=== PATIENT | female | born 1950 | race Caucasian/White ===

== ENCOUNTER → 2016-11-22 | Outpatient (CLI) | payer MEDICARE ==
[~2016-11-22] VITALS: Ht 167.6 cm; Wt 93.4 kg
[~2016-11-22] MED LIST: ALEN70SO PO; ARAV1TAB PO; ASPI81TA85 PO; ATOR1TAB19 PO; ATOR40TA75 PO; CARV6.25 PO; D3 M1CAP2 PO; DILA100C PO; DOCU10ELUD PO; ELIQ5TAB PO; FERR325T3 PO; IBUP200T2 PO; IRBE75TA5 PO; IRON50TA PO; IRON65TA PO; JANU100T PO; KETO10TAB PO; LEFL1TAB4 PO; LEFL20TA PO; LIDOCAINE 2% INJ 100 MG/5 ML SDV (FOR ANES.) As Ordered ONE; LISI5TAB PO; MOBI15TA PO; MULTTAB4 PO; NS 1,000 ML IV ONE; OMEP20CA3 PO; OREN250I IV; PRED1TABL PO; PRED50TA2 PO; PRED5PAK PO; PROPOFOL 200 MG/20 ML VIAL As Ordered ONE; REST0.05 OU; ROPI0.25 PO; ROPINIROLE PO; SENO8.6T9 PO; TYLE325T5 PO; VITA100037 PO; VITA100072 PO; VITA250L PO; VITA500C24 PO; [UNRECOGNIZED DRUG - CODE] PO; [UNRECOGNIZED DRUG - OTHER] PO
--- NOTE | 2016-11-22 09:03 | ROOR ---
Patient Name: Carrol Nuñez Procedure Date: 11/22/2016 8:46 AM Date of : 1950 Age: 65 Room: [facility] Gender: Female Note Status: Finalized Procedure: Upper GI endoscopy + Small bowel bx. Indications: Iron deficiency anemia Providers: Eduardo Lutz MD Referring MD: ALAN DAVIS MD Requesting Provider: Medicines: Monitored Anesthesia Care Complications: No immediate complications. Procedure: Pre-Anesthesia Assessment: - The heart rate, respiratory rate, oxygen saturations, blood pressure, adequacy of pulmonary ventilation, and response to care were monitored throughout the procedure. The Endoscope was introduced through the mouth, and advanced to the second part of duodenum. The upper GI endoscopy was accomplished without difficulty. The patient tolerated the procedure well. Findings: The Z-line was regular and was found 40 cm from the incisors. The exam of the esophagus was otherwise normal. No other significant abnormalities were identified in a careful examination of the stomach. The exam of the duodenum was otherwise normal. Biopsies for histology were taken with a cold forceps in the first portion of the duodenum for evaluation of celiac disease. The exam was otherwise without abnormality. Impression: - Z-line regular, 40 cm from the incisors. - The examination was otherwise normal. - Biopsies were taken with a cold forceps for evaluation of celiac disease. - The examination was otherwise normal. Recommendation: - Patient has a contact number available for emergencies. The signs and symptoms of potential delayed complications were discussed with the patient. Return to normal activities tomorrow. Written discharge instructions were provided to the patient. - High fiber diet. - Discharge patient to home. - Continue present medications. - Await pathology results. - Telephone GI clinic for pathology results in 1 week. - Return to referring physician. - Check Portal Online for Path Results.([email or web address] - The findings and recommendations were discussed with the patient's family. Eduardo Lutz MD Eduardo Lutz MD 11/22/2016 9:02:39 AM This report has been signed electronically. Number of Addenda: 0 Note Initiated On: 11/22/2016 8:46 AM Estimated Blood Loss: Estimated blood loss: none.
--- NOTE | 2016-11-22 09:19 | ROOR ---
Patient Name: Carrol Nuñez Procedure Date: 11/22/2016 8:46 AM Date of : 1950 Age: 65 Room: [facility] Gender: Female Note Status: Finalized Procedure: Total Colonoscopy to Cecum Indications: Colon cancer screening in patient at increased risk: Colorectal cancer in father Providers: Eduardo Lutz MD Referring MD: ALAN DAVIS MD Requesting Provider: Medicines: Monitored Anesthesia Care Complications: No immediate complications. Procedure: Pre-Anesthesia Assessment: - The heart rate, respiratory rate, oxygen saturations, blood pressure, adequacy of pulmonary ventilation, and response to care were monitored throughout the procedure. The Colonoscope was introduced through the anus and advanced to the cecum, identified by appendiceal orifice and ileocecal valve. The colonoscopy was performed without difficulty. The patient tolerated the procedure well. The quality of the bowel preparation was good. Findings: The perianal and digital rectal examinations were normal. No other significant abnormalities were identified in a careful examination of the remainder of the colon. The exam was otherwise without abnormality on direct and retroflexion views. Impression: - The examination was otherwise normal on direct and retroflexion views. - No specimens collected. - The exam was otherwise normal to the cecum. Recommendation: - Patient has a contact number available for emergencies. The signs and symptoms of potential delayed complications were discussed with the patient. Return to normal activities tomorrow. Written discharge instructions were provided to the patient. - High fiber diet. - Discharge patient to home. - Continue present medications. - Repeat colonoscopy in 5 years for screening purposes. - Return to referring physician. - The findings and recommendations were discussed with the patient's family. Eduardo Lutz MD Eduardo Lutz MD 11/22/2016 9:18:41 AM This report has been signed electronically. Number of Addenda: 0 Note Initiated On: 11/22/2016 8:46 AM Estimated Blood Loss: Estimated blood loss: none.
[2016-11-22 09:45] VITALS: BP 135/83
== END ==
LOC: M OPP 07:35
PROVIDERS: ATTEND Internal Medicine Gastroenterology
DX: Z12.11 Encounter for screening for malignant neoplasm of colon (principal); Z80.0 Family history of malignant neoplasm of digestive organs; D50.9 Iron deficiency anemia, unspecified; G40.909 Epilepsy, unspecified, not intractable, without status epilepticus; M06.9 Rheumatoid arthritis, unspecified; M19.90 Unspecified osteoarthritis, unspecified site; I10 Essential (primary) hypertension; G62.9 Polyneuropathy, unspecified; E78.00 Pure hypercholesterolemia, unspecified; E11.9 Type 2 diabetes mellitus without complications; I48.91 Unspecified atrial fibrillation; G56.00 Carpal tunnel syndrome, unspecified upper limb; H26.9 Unspecified cataract; Z98.61 Coronary angioplasty status; Z79.02 Long term (current) use of antithrombotics/antiplatelets; Z79.899 Other long term (current) drug therapy; Z88.8 Allergy status to other drugs, medicaments and biological substances
CPT/HCPCS: 43239; 88305; G0105

== ENCOUNTER → 2017-09-07 | Outpatient (CLI) | payer MEDICARE ==
[2017-09-07 15:14] LABS: INR 1.82; PROTHROMBIN TIME 21.6 SECONDS (12.4-14.5)
== END ==
LOC: M LAB 14:23
DX: Z79.01 Long term (current) use of anticoagulants (principal)
CPT/HCPCS: 85610

== ENCOUNTER → 2018-02-12 | Outpatient (CLI) | payer MEDICARE ==
[2018-02-12 13:20] LABS: INR 1.02; PROTHROMBIN TIME 13.5 SECONDS (12.1-14.4)
== END ==
LOC: M LAB 12:24
DX: I48.0 Paroxysmal atrial fibrillation (principal)
CPT/HCPCS: 85610

== ENCOUNTER → 2018-03-04 | Outpatient (CLI) | payer MEDICARE ==
[2018-03-04 15:32] LABS: INR 2.55
== END ==
LOC: M LAB 15:09
DX: I48.0 Paroxysmal atrial fibrillation (principal)
CPT/HCPCS: 85610

== ENCOUNTER 2018-03-05 05:32 | Emergency (ER) | payer MEDICARE ==
[2018-03-05 06:10] LABS: BASO % 0.5 % (0.0-1.0); EOS # 0.2 10^3/uL (0.0-0.50); EOS % 2.1 % (0.0-3.0); HEMATOCRIT 37.5 % (36.0-47.0); HEMOGLOBIN 12.2 g/dl (12.0-15.5); IMMATURE GRANULOCYTE % 0.3 % (0-3.0); LYMPH # 2.6 10^3/uL (1.5-4.5); MEAN CORPUSCULAR HEMOGLOBIN 30.1 pg (27.0-33.0); MEAN CORPUSCULAR HGB CONC 32.5 g/dl (32.0-36.5); MEAN CORPUSCULAR VOLUME 92.6 fl (80.0-96.0); MONO # 0.6 10^3/uL (0.0-0.8); MONO % 8.2 % (0.0-5.0); NEUTROPHILS # 4.3 10^3/uL (1.8-7.7); NEUTROPHILS % 54.9 % (36.0-66.0); PLATELET COUNT, AUTOMATED 208 10^3/uL (150-450); RED BLOOD COUNT 4.05 10^6/uL (4.00-5.40); WHITE BLOOD COUNT 7.7 10^3/uL (4.0-10.0)
[2018-03-05 07:09] LABS: INR 2.42; PROTHROMBIN TIME 26.8 SECONDS (12.1-14.4)
[2018-03-05 07:10] LABS: PARTIAL THROMBOPLASTIN TIME 38.4 SECONDS (25.4-37.6)
[2018-03-05] MEDS: KETOROLAC 30 MG/ML VIAL (J1885) IV (07:30)
[2018-03-05 07:57] LABS: ANION GAP 7 MEQ/L (8-16); BLOOD UREA NITROGEN 11 MG/DL (7-18); CALCIUM LEVEL 7.8 MG/DL (8.8-10.2); CARBON DIOXIDE LEVEL 28 MEQ/L (21-32); CHLORIDE LEVEL 108 MEQ/L (98-107); CK-MB VALUE MASS < 1.0 NG/ML (<3.6); CPK CREATINE PHOSPHOKINASE 44 U/L (26-192); CREATININE FOR GFR 0.68 MG/DL (0.55-1.30); GLOMERULAR FILTRATION RATE > 60.0 (>45); GLUCOSE, FASTING 108 MG/DL (70-100); MB/CK RELATIVE INDEX 2.27 (< OR =4); POTASSIUM SERUM 4.9 MEQ/L (3.5-5.1); SODIUM LEVEL 143 MEQ/L (136-145); TROPONIN I < 0.02 NG/ML (< 0.10)
[2018-03-05] MEDS ORDERED: ISOVUE-370 76% 100ML VIAL (Q9967) As Ordered (08:18)
== END 2018-03-05 09:58 | disposition home or self-care (01) ==
LOC: M ED 05:32
DX: R07.89 Other chest pain (principal); I48.91 Unspecified atrial fibrillation; I10 Essential (primary) hypertension; E78.5 Hyperlipidemia, unspecified; E11.9 Type 2 diabetes mellitus without complications; M06.9 Rheumatoid arthritis, unspecified; Z88.8 Allergy status to other drugs, medicaments and biological substances; Z79.899 Other long term (current) drug therapy; Z79.01 Long term (current) use of anticoagulants; Z79.52 Long term (current) use of systemic steroids; Z79.84 Long term (current) use of oral hypoglycemic drugs
CPT/HCPCS: Q9967

== ENCOUNTER → 2018-03-25 | Outpatient (CLI) | payer MEDICARE ==
[2018-03-25 14:34] LABS: INR 2.73; PROTHROMBIN TIME 29.5 SECONDS (12.1-14.4)
== END ==
LOC: M LAB 13:15
DX: I48.0 Paroxysmal atrial fibrillation (principal); Z51.81 Encounter for therapeutic drug level monitoring; Z79.01 Long term (current) use of anticoagulants
CPT/HCPCS: 85610

== ENCOUNTER 2018-04-06 14:39 | Emergency (ER) | payer MEDICARE ==
[2018-04-06] MEDS: NORCO, ANEXSIA 5/325MG TABLET (HYDROcodone/ACETAMINOPHEN) PO (15:15)
== END 2018-04-06 16:26 | disposition home or self-care (01) ==
LOC: M ED 14:39
DX: S83.92XA Sprain of unspecified site of left knee, initial encounter (principal); X50.9XXA Other and unspecified overexertion or strenuous movements or postures, initial encounter; Y92.89 Other specified places as the place of occurrence of the external cause; M25.462 Effusion, left knee; I10 Essential (primary) hypertension; E78.00 Pure hypercholesterolemia, unspecified; G47.30 Sleep apnea, unspecified; M06.9 Rheumatoid arthritis, unspecified; Z88.8 Allergy status to other drugs, medicaments and biological substances; Z79.01 Long term (current) use of anticoagulants; Z79.899 Other long term (current) drug therapy; Z79.82 Long term (current) use of aspirin
CPT/HCPCS: 73564

== ENCOUNTER → 2018-05-07 | Outpatient (CLI) | payer MEDICARE ==
[~2018-05-07] MED LIST changes: +ASPI1TAB PO; +HYDR-3713 PO; +HYDR200T3 PO; +IRBE150T12 PO; -LIDOCAINE 2% INJ 100 MG/5 ML SDV (FOR ANES.) As Ordered ONE; +METF750T PO; +NORCOTAB PO; -NS 1,000 ML IV ONE; -PROPOFOL 200 MG/20 ML VIAL As Ordered ONE; -ROPI0.25 PO; +ROPI0.253 PO; +WARF4TAB51 PO
[2018-05-07 15:00] LABS: INR 1.62; PROTHROMBIN TIME 19.5 SECONDS (12.1-14.4)
== END ==
LOC: M LAB 14:20
PROVIDERS: ATTEND Physician Assistant
DX: I48.0 Paroxysmal atrial fibrillation (principal); Z79.01 Long term (current) use of anticoagulants

== ENCOUNTER → 2018-05-31 | Outpatient (CLI) | payer MEDICARE ==
[2018-05-31 11:39] LABS: INR 1.78
== END ==
LOC: M LAB 10:35
PROVIDERS: ATTEND Physician Assistant
DX: I48.0 Paroxysmal atrial fibrillation (principal)

== ENCOUNTER → 2018-06-28 | Outpatient (CLI) | payer MEDICARE ==
[2018-06-28 09:24] LABS: INR 0.92; PROTHROMBIN TIME 12.4 SECONDS (12.1-14.4)
== END ==
LOC: M LAB 06-26 10:30
PROVIDERS: ATTEND Internal Medicine Cardiovascular Disease
DX: I48.0 Paroxysmal atrial fibrillation (principal)

== ENCOUNTER → 2018-07-29 | Outpatient (CLI) | payer MEDICARE ==
[2018-07-29 16:06] LABS: INR 3.8; PROTHROMBIN TIME 38.3 SECONDS (12.1-14.4)
== END ==
LOC: M LAB 15:17
PROVIDERS: ATTEND Physician Assistant
DX: I48.0 Paroxysmal atrial fibrillation (principal)

== ENCOUNTER → 2018-09-11 | Outpatient (CLI) | payer MEDICARE ==
[~2018-09-11] MED LIST changes: -ASPI1TAB PO; +ASPI81TA26 PO; -DOCU10ELUD PO; +DOCU5LIQ PO; +HYDR-3715 PO; -NORCOTAB PO
[2018-09-11 14:25] LABS: INR 1.41; PROTHROMBIN TIME 17.5 SECONDS (12.1-14.4)
== END ==
LOC: M LAB 13:41
PROVIDERS: ATTEND Physician Assistant
DX: I48.0 Paroxysmal atrial fibrillation (principal)

== ENCOUNTER → 2018-09-27 | Outpatient (CLI) | payer MEDICARE ==
[2018-09-27 15:57] LABS: INR 3.57; PROTHROMBIN TIME 36.5 SECONDS (12.1-14.4)
== END ==
LOC: M LAB 15:05
PROVIDERS: ATTEND Physician Assistant
DX: I48.0 Paroxysmal atrial fibrillation (principal)

== ENCOUNTER → 2018-11-05 | Outpatient (CLI) | payer MEDICARE ==
[2018-11-05 19:44] LABS: INR 3.84; PROTHROMBIN TIME 38.7 SECONDS (12.1-14.4)
== END ==
LOC: M LAB 18:41
PROVIDERS: ATTEND Physician Assistant
DX: I48.0 Paroxysmal atrial fibrillation (principal)

== ENCOUNTER → 2018-12-12 | Outpatient (CLI) | payer MEDICARE ==
[~2018-12-12] MED LIST changes: +OMEP20CA4 PO
[2018-12-12 10:54] LABS: PROTHROMBIN TIME 69.3 SECONDS (11.8-14.0)
[2018-12-12 15:11] LABS: INR 8.18
== END ==
LOC: M LAB 09:49
PROVIDERS: ATTEND Physician Assistant
DX: I48.0 Paroxysmal atrial fibrillation (principal)

== ENCOUNTER → 2018-12-16 | Outpatient (CLI) | payer MEDICARE ==
[2018-12-16 15:07] LABS: INR 1.41; PROTHROMBIN TIME 16.9 SECONDS (11.8-14.0)
== END ==
LOC: M LAB 14:27
PROVIDERS: ATTEND Physician Assistant
DX: I48.0 Paroxysmal atrial fibrillation (principal)

== ENCOUNTER → 2018-12-25 | Outpatient (CLI) | payer MEDICARE ==
[2018-12-25 17:14] LABS: PROTHROMBIN TIME 48.9 SECONDS (11.8-14.0)
[2018-12-25 17:28] LABS: INR 5.29
== END ==
LOC: M LAB 15:41
PROVIDERS: ATTEND Physician Assistant
DX: I48.0 Paroxysmal atrial fibrillation (principal)

== ENCOUNTER → 2019-01-15 | Outpatient (CLI) | payer MEDICARE ==
[~2019-01-15] MED LIST changes: +ALEN70TA74 PO; +METF-954 PO; +SALA1TAB PO; +TRUL0.5I SC; +WARF-58 PO
[2019-01-15 14:45] LABS: INR 3.2; PROTHROMBIN TIME 32.7 SECONDS (11.8-14.0)
== END ==
LOC: M LAB 13:32
PROVIDERS: ATTEND Internal Medicine Cardiovascular Disease
DX: Z79.01 Long term (current) use of anticoagulants (principal)

== ENCOUNTER 2019-01-16 17:21 | Inpatient (IN) | payer MEDICARE ==
[~2019-01-16] VITALS: Ht 167.6 cm; Wt 73.5 kg
[~2019-01-16 17:21] MED LIST changes: -ALEN70TA74 PO; -METF-954 PO; -SALA1TAB PO; -TRUL0.5I SC; -WARF-58 PO
[2019-01-16 18:40] LABS: BASO % 0.8 % (0.0-1.0); EOS # 0.2 10^3/uL (0.0-0.50); HEMATOCRIT 30.8 % (36.0-47.0); HEMOGLOBIN 10.3 g/dl (12.0-15.5); LYMPH # 2.2 10^3/uL (1.5-4.5); LYMPH % 41.1 % (24.0-44.0); MEAN CORPUSCULAR HEMOGLOBIN 29.9 pg (27.0-33.0); MEAN CORPUSCULAR HGB CONC 33.4 g/dl (32.0-36.5); MEAN CORPUSCULAR VOLUME 89.5 fl (80.0-96.0); MONO # 0.7 10^3/uL (0.0-0.8); MONO % 13.5 % (0.0-5.0); NEUTROPHILS # 2.1 10^3/uL (1.8-7.7); NEUTROPHILS % 40.4 % (36.0-66.0); PLATELET COUNT, AUTOMATED 163 10^3/uL (150-450); RED BLOOD COUNT 3.44 10^6/uL (4.00-5.40); WHITE BLOOD COUNT 5.3 10^3/uL (4.0-10.0)
[2019-01-16 18:44] LABS: INR 3.81; PROTHROMBIN TIME 37.6 SECONDS (11.8-14.0)
[2019-01-16 18:45] LABS: ALBUMIN 3.2 GM/DL (3.2-5.2); ALT/SGPT 17 U/L (12-78); BILIRUBIN,TOTAL 0.2 MG/DL (0.2-1.0); BLOOD UREA NITROGEN 16 MG/DL (7-18); CALCIUM LEVEL 7.7 MG/DL (8.8-10.2); CARBON DIOXIDE LEVEL 31 MEQ/L (21-32); CHLORIDE LEVEL 103 MEQ/L (98-107); CREATININE FOR GFR 0.87 MG/DL (0.55-1.30); GLOMERULAR FILTRATION RATE > 60.0 (>39); GLUCOSE, FASTING 118 MG/DL (70-100); PARTIAL THROMBOPLASTIN TIME 46.1 SECONDS (25.0-38.4); POTASSIUM SERUM 3.3 MEQ/L (3.5-5.1); SODIUM LEVEL 141 MEQ/L (136-145); TOTAL PROTEIN 6.6 GM/DL (6.4-8.2)
[2019-01-16] MEDS ORDERED: METF-954 PO (20:35)
[2019-01-16] MEDS ORDERED: WARF-58 PO (20:35)
[2019-01-16] MEDS ORDERED: SALA1TAB PO (20:35)
[2019-01-16] MEDS ORDERED: TRUL0.5I SC (20:35)
[2019-01-16] MEDS ORDERED: ALEN70TA74 PO (20:35)
[2019-01-16] MEDS ORDERED: HumaLOG INSULIN (NovoLOG) PER UNIT SC SCH (21:00)
[2019-01-16] MEDS: NS 1,000 ML IV SCH (21:16)
[2019-01-16] MEDS ORDERED: GLUCOSE 4 GM CHEW TABLET PO PRN (21:30)
[2019-01-16] MEDS ORDERED: GLUCAGON FOR INJ 1 MG VIAL (J1610) SC PRN (21:30)
[2019-01-16] MEDS ORDERED: DEXTROSE 50% 50 ML SYRINGE IV PRN (21:30)
--- NOTE | 2019-01-16 21:32 | ECGEPIP ---
[facility] - ED Test Date: 2019-01-16 Pat Name: ULI TONG Department: Room: - Gender: Female Receiving Operator: : 1950 Requested By: DAMARIS Elam Order Number: [id number] Reading MD: Urvashi De Leon Measurements Intervals Dawson Rate: 88 P: 70 [place]: 186 QRS: 1 QRSD: 86 T: 4 QT: 392 QTc: 475 Interpretive Statements SINUS RHYTHM WITH OCCASIONAL SUPRAVENTRICULAR PREMATURE COMPLEXES NONSPECIFIC ST & T-WAVE ABNORMALITY INCREASED RATE/ECTOPY 03/05/18 Electronically Signed on 01-16-2019 21:31:55 EDT by Urvashi De Leon
--- NOTE | 2019-01-16 21:43 | HPEPDOC ---
[facility] Medical History & Physical Date of Admission Jan 16, 2019 Date of Service: Jan 16, 2019 Other Provider PCP: Alexandr Pearce Attending Physician: LYUDMILA PERKINS MD History and Physical PRIMARY CARE PROVIDER: Dr. Alexandr Pearce ATTENDING: Dr. Lyudmila Perkins CHIEF COMPLAINT: Blood in stool HISTORY OF PRESENT ILLNESS: Patient is a 68 year old female who was sent to the emergency department by Dr. Bhatt's office for supratherapeutic INR with concurrent GI bleed. Patient states that for the past 5-7 days she has felt weak, tired and has noticed dark loose stool as well as bright red blood in her stool. She states this has never happened before. She did not come in sooner because she "did not want to be a bother". She has had a supratherapeutic INR up to 8 in the outpatient setting for the past month but never with any GI bleeding, she states she thinks this happens because she does not follow the dietary recommendations that come with taking warfarin too well. She otherwise has no complaints currently. Stool occult done in ED was positive for bright red blood per rectum. PAST MEDICAL HISTORY: Paroxysmal atrial fibrillation Type 2 diabetes Rheumatoid arthritis Hypertension GERD Restless leg syndrome PAST SURGICAL HISTORY: Loop recorder insertion by Dr. Avila 2 C-sections (1973, 1974) Appendectomy (1974) Cholecystectomy () SOCIAL HISTORY: Denies alcohol use, denies use of tobacco products, denies any marijuana, heroin, cocaine, or PCP use. 1 cat at home. Lives by herself. FAMILY HISTORY: Father and brother with colorectal cancer history ALLERGIES: Please see below. REVIEW OF SYSTEMS: GENERAL: Denies fevers, chills, night sweats, hemoptysis. Admits to 60 lbs unintentional weight loss in last year. HEENT: Denies headache, dizziness, vision changes, hearing loss, sore throat. Admits to lightheadedness CARDIOVASCULAR: Denies chest pain, palpitations, orthopnea RESPIRATORY: Denies shortness of breath, wheezing, cough GASTROINTESTINAL: denies nausea, vomiting, abdominal pain, constipation, admits to diarrhea, bloody stool GENITOURINARY: Denies dysuria,urinary urgency, hematuria. MUSCULOSKELETAL: Denies muscle/joint pain, stiffness, admits to weakness NEUROLOGICAL: Denies any numbness/tingling, focal weakness, or syncope HOME MEDICATIONS: Please see below. PHYSICAL EXAMINATION: Vitals: (see below) General: No acute distress, laying comfortably in bed. HEENT: Normocephalic, atraumatic. EOMI. No scleral icterus. dry mucous membranes . No pharyngeal erythema or uvular deviation. Neck: No JVD, lymphadenopathy, or thyromegaly. Cardiac: RRR, Normal S1 and S2, No murmurs, gallops, rubs. Pulm: Clear to auscultation b/l. No wheezing, crackles or rhonchi Abd: Bowel Sounds present. Abdomen is soft, non-tender, non-distended. No guarding, rebound tenderness, or rigidity. No hepatosplenomegaly. No masses or eccymosis. Ext: No edema or cyanosis Neuro: Strength +5/5 BUE and BLE. CN 3-12 grossly intact. Sensation intact LABORATORY DATA: See below. IMAGING: None MICROBIOLOGY: Please see below. ASSESSMENT/PLAN: #. GI bleed Suspect lower GI bleed but given history of darkened stools, it could potentially be upper GI as well. Patient is currently stable as they're hemoglobin is not especially low. Transfuse if hemoglobin is less than 8. Will trend H&H's every 6 hours. Consulted general surgery (Dr. Mercer), who recommended getting a CT abdomen pelvis with IV contrast given her history of recent unexpected weight changeover operator the past year. He will see patient in AM and will likely proceed with endoscopy. Getting GI prophylaxis, running IV fluids at 100 mL per hour, patient on clear liquid diet in anticipation for endoscopy. #. Supratherapeutic INR of 3.8 - Holding Warfarin x2 days and will reduce dosage by 25% - Not giving Vitamin K, as patient will still need to be anticoagulated for her paroxysmal afib #. Paroxysmal atrial fibrillation - holding anticoagulation - Continue home carvedilol #. Type 2 diabetes -Sliding-scale insulin - Continue atorvastatin #. Hypertension - Patients blood pressure controlled currently, irbesartan listed as home med, but not reviewed by pharmacy. Can keep in mind if elevated in the future. #. Restless leg syndrome -Continue ropinirole #. Rheumatoid arthritis -Continue leflunomide, plaquenil home med, was scheduled for orencia infusion tomorrow, but can follow up and reschedule outpatient #.Epilepsy -Continue phenytoin -DVT prophy: Teds and sequentials, holding warfarin for GI bleed Vital Signs Vital Signs Date Time Temp Pulse Resp B/P (MAP) Pulse Ox O2 Delivery O2 Flow Rate FiO2 01/16/19 20:24 75 119/70 (86) 97 01/16/19 17:22 98.2 16 Room Air Laboratory Data Labs 24H Laboratory Tests 2 01/16/19 17:58: Immature Granulocyte % (Auto) 0.2, White Blood Count 5.3, Red Blood Count 3.44L, Hemoglobin 10.3L, Hematocrit 30.8L, Mean Corpuscular Volume 89.5, Mean Corpuscular Hemoglobin 29.9, Mean Corpuscular Hemoglobin Concent 33.4, Red Cell Distribution Width 13.5, Platelet Count 163, Neutrophils (%) (Auto) 40.4, Lymphocytes (%) (Auto) 41.1, Monocytes (%) (Auto) 13.5H, Eosinophils (%) (Auto) 4.0H, Basophils (%) (Auto) 0.8, Neutrophils # (Auto) 2.1, Lymphocytes # (Auto) 2 .2, Monocytes # (Auto) 0.7, Eosinophils # (Auto) 0.2, Basophils # (Auto) 0.0, Nucleated Red Blood Cells % (auto) 0.0, Prothrombin Time 37.6H, Prothromb Time International Ratio 3.81, Activated Partial Thromboplast Time 46.1H, Anion Gap 7L, Glomerular Filtration Rate > 60.0, Blood Urea Nitrogen 16, Creatinine 0.87, Sodium Level 141, Potassium Level 3.3L, Chloride Level 103, Carbon Dioxide Level 31, Calcium Level 7.7L, Aspartate Amino Transf (AST/SGOT) 23, Alanine Aminotransferase (ALT/SGPT) 17, Alkaline Phosphatase 90, Total Bilirubin 0.2, Total Protein 6.6, Albumin 3.2, Albumin/Globulin Ratio 0.94L CBC/BMP Laboratory Tests 01/16/19 17:58 Red Blood Count 3.44 L, Mean Corpuscular Volume 89.5, Mean Corpuscular Hemoglobin 29.9, Mean Corpuscular Hemoglobin Concent 33.4, Red Cell Distribution Width 13.5, Neutrophils (%) (Auto) 40.4, Lymphocytes (%) (Auto) 41.1, Monocytes (%) (Auto) 13.5 H, Eosinophils (%) (Auto) 4.0 H, Basophils (%) (Auto) 0.8, Neutrophils # (Auto) 2.1, Lymphocytes # (Auto) 2.2, Monocytes # (Auto) 0.7, Eosinophils # (Auto) 0.2, Basophils # (Auto) 0.0, Calcium Level 7.7 L, Aspartate Amino Transf (AST/SGOT) 23, Alanine Aminotransferase (ALT/SGPT) 17, Alkaline Phosphatase 90, Total Bilirubin 0.2, Total Protein 6.6, Albumin 3.2 Home Medications Scheduled Abatacept Injection (Orencia 250 mg Vial) 250 Mg Inj, 250 MG IV QMONTH DUE 01/17/19 Alendronate Sodium (Alendronate Sodium) 70 Mg Tablet, 70 MG PO QWEEK SATURDAYS Atorvastatin Calcium (Atorvastatin Calcium) 40 Mg Tab, 40 MG PO DAILY Carvedilol (Carvedilol) 6.25 Mg Tab, 6.25 MG PO BID Cholecalciferol (Vitamin D3) (Vitamin D3) 5,000 Unit Cap, 5,000 UNIT PO DAILY Cyanocobalamin (Vitamin B-12) (B-12 Dual Spectrum) 5,000 Mcg Tab, 5,000 MCG PO DAILY Dulaglutide (Trulicity) 1.5 Mg/0.5 Ml Pen.injctr, 1.5 MG SC QWEEK SATURDAYS Hydroxychloroquine Sulfate (Hydroxychloroquine Sulfate) 200 Mg Tab, 200 MG PO BID Irbesartan (Irbesartan) 75 Mg Tab, 75 MG PO QHS Leflunomide (Leflunomide) 20 Mg Tab, 20 MG PO DAILY Metformin HCl (Metformin HCl) 850 Mg Tablet, 850 MG PO BID Omeprazole (Omeprazole) 20 Mg Cap, 20 MG PO DAILY Phenytoin Sodium Extended (Dilantin) 100 Mg Cap, 200 MG PO TID Pilocarpine HCl (Salagen) 5 Mg Tablet, 5 MG PO TID Prednisone (Prednisone) 5 Mg Sergey, 5 MG PO Q2D PT RAN OUT OF MED A COUPLE DAYS AGO Ropinirole HCl (Ropinirole HCl) 0.25 Mg Tab, 0.25 MG PO BID Allergies Coded Allergies: infliximab (Verified Allergy, Unknown, not sure what reaction is, 01/16/19) lisinopril (Verified Adverse Reaction, Mild, cough, 01/16/19) A-FIB/CHADSVASC A-FIB History Current/History of A-Fib/PAF?: Yes Current PO Anticoag Therapy: Yes Age/Risk Factor Scoring CHADSVASC: CHADSVASC Response (Comments) Value Age Risk Factor Age 65-74 years old 1 Gender Risk Factor Female 1 Hx of HTN Yes 1 Hx of Diabetes Yes 1 Total 4 Treatment Treatment ordered: Holding Warfarin Reason Anticoagulant not given: Current bleeding GME ATTESTATION GME ATTESTATION My faculty preceptor for this patient encounter was physically present during the encounter and was fully available. All aspects of the patient interview, examination, medical decision making process, and medical care plan development were reviewed and approved by the faculty preceptor. The faculty preceptor is aware and concurs with the plan as stated in the body of this note and will attest to such by his/her cosignature. ATTENDING NOTE I personally performed a history and physical examination of the patient and discussed the management with the resident. I reviewed the resident's note and agree with the documented findings and plan of care. LENIN IGNACIO DO Jan 16, 2019 21:43 LYUDMILA PERKINS MD Jan 19, 2019 19:27
[2019-01-16] MEDS ORDERED: ISOVUE-370 76% 100ML VIAL (Q9967) As Ordered ONE (22:29)
[2019-01-17 00:36] VITALS: BP 139/96
--- NOTE | 2019-01-17 00:43 | REPVR ---
EXAM: CT Abdomen and Pelvis With Contrast EXAM DATE/TIME: 01/16/2019 9:50 PM CLINICAL HISTORY: 68 years old, female; Other: Wt loss gi bleed; Additional info: 60 lbs weight loss in last year, gi bleed TECHNIQUE: Imaging protocol: Computed tomography of the abdomen and pelvis with intravenous contrast. Radiation optimization: All CT scans at this facility use at least one of these dose optimization techniques: automated exposure control; mA and/or kV adjustment per patient size (includes targeted exams where dose is matched to clinical indication); or iterative reconstruction. Contrast material: ISO; Contrast volume: 100 ml; Contrast route: AC; COMPARISON: CR Pelvis, complete 05/31/2013 10:51 AM FINDINGS: Lungs: Mild bibasilar atelectasis. Heart: Cardiomegaly. Liver: Liver is enlarged with mild diffuse fatty infiltration. Gallbladder and bile ducts: Status post cholecystectomy. No ductal dilatation. Pancreas: Moderate atrophy of the pancreas. Spleen: Normal. No splenomegaly. Adrenals: Normal. No mass. Kidneys and ureters: Lobulated appearance of the bilateral kidneys. No stones or hydroureteronephrosis. Stomach and bowel: Normal. No obstruction. No mucosal thickening. Appendix: No evidence of appendicitis. Intraperitoneal space: Normal. No free air. No significant fluid collection. Vasculature: Normal. No abdominal aortic aneurysm. Lymph nodes: Normal. No enlarged lymph nodes. Bladder: Unremarkable as visualized. Reproductive: Unremarkable as visualized. Bones/joints: Diffuse demineralization of the bones with degenerative changes. Soft tissues: Unremarkable. IMPRESSION: No acute finding. Enlarged liver with diffuse fatty infiltration. No masses. Electronically signed by: Noemi Su On 01/17/2019 00:43:41 AM
[2019-01-17 00:51] LABS: HEMATOCRIT 29.2 % (36.0-47.0); HEMOGLOBIN 9.9 g/dl (12.0-15.5)
[2019-01-17] MEDS: HYDROXYCHLOROQUINE 200 MG TAB PO SCH ×2 (00:51→09:14)
[2019-01-17] MEDS: CARVedilol 6.25 MG TAB PO SCH ×2 (00:51→09:14)
[2019-01-17] MEDS: PHENYTOIN ER 100 MG CAP PO SCH ×3 (00:52→16:31)
[2019-01-17] MEDS: rOPINIRole 0.25 MG TAB(REQUIP) PO SCH ×2 (00:52→09:15)
[2019-01-17] MEDS: PANTOPRAZOLE 40MG INJ (PROTONIX) (C9113) IV SCH ×2 (00:53→09:14)
[2019-01-17 06:02] VITALS: BP 119/78
[2019-01-17 06:05] LABS: BASO % 0.9 % (0.0-1.0); EOS # 0.2 10^3/uL (0.0-0.50); EOS % 3.9 % (0.0-3.0); HEMATOCRIT 28.7 % (36.0-47.0); HEMOGLOBIN 9.8 g/dl (12.0-15.5); LYMPH # 1.9 10^3/uL (1.5-4.5); LYMPH % 40.9 % (24.0-44.0); MEAN CORPUSCULAR HEMOGLOBIN 30.4 pg (27.0-33.0); MEAN CORPUSCULAR HGB CONC 34.1 g/dl (32.0-36.5); MEAN CORPUSCULAR VOLUME 89.1 fl (80.0-96.0); MONO # 0.6 10^3/uL (0.0-0.8); MONO % 12.1 % (0.0-5.0); NEUTROPHILS # 1.9 10^3/uL (1.8-7.7); PLATELET COUNT, AUTOMATED 122 10^3/uL (150-450); RED BLOOD COUNT 3.22 10^6/uL (4.00-5.40); WHITE BLOOD COUNT 4.6 10^3/uL (4.0-10.0)
[2019-01-17 06:15] LABS: INR 3.85; PROTHROMBIN TIME 37.9 SECONDS (11.8-14.0)
[2019-01-17 06:31] LABS: BLOOD UREA NITROGEN 11 MG/DL (7-18); CALCIUM LEVEL 7.6 MG/DL (8.8-10.2); CARBON DIOXIDE LEVEL 31 MEQ/L (21-32); CHLORIDE LEVEL 106 MEQ/L (98-107); CREATININE FOR GFR 0.64 MG/DL (0.55-1.30); GLOMERULAR FILTRATION RATE > 60.0 (>39); GLUCOSE, FASTING 97 MG/DL (70-100); POTASSIUM SERUM 3.2 MEQ/L (3.5-5.1); SODIUM LEVEL 143 MEQ/L (136-145)
[2019-01-17] MEDS: HumaLOG INSULIN (NovoLOG) PER UNIT SC SCH ×3 (07:30→16:31)
[2019-01-17] MEDS ORDERED: LEFLUNOMIDE 20 MG PO SCH (09:00)
[2019-01-17] MEDS ORDERED: PILOCARPINE 5 MG PO SCH (09:00)
[2019-01-17] MEDS ORDERED: ATORVASTATIN 20 MG TAB PO SCH (09:00)
[2019-01-17 09:14] VITALS: BP 119/78
[2019-01-17] MEDS: NS 1,000 ML IV SCH (11:43)
[2019-01-17 12:15] LABS: HEMATOCRIT 29.4 % (36.0-47.0); HEMOGLOBIN 10.1 g/dl (12.0-15.5)
[2019-01-17] MEDS ORDERED: LOPERAMIDE 2 MG CAP PO PRN (13:00)
--- NOTE | 2019-01-17 13:31 | CR ---
DATE OF CONSULTATION: 01/17/2019 The patient is a 68-year-old female who presents with about 7-10 days of more severe diarrhea with some gastrointestinal (GI) bleeding. She notices that since her diabetic issues have been problematic she has had more diarrhea issues. She noticed some dark stool, but mostly it is bright red blood per rectum. The darker stool is maroon, it is not melanotic. The patient has had a supratherapeutic INR in the past, but no bleeding associated with that. She had a colonoscopy 2 years ago that revealed no evidence of significant abnormality by Dr. Lutz and essentially had a workup because of family history of colon cancer which revealed essentially normal colon throughout. She underwent abdomen and pelvis CAT scan last night after I had spoken to the hospitalist for a 60 pound weight loss in the last year and essentially the CAT scan reveals no significant findings with an enlarged liver, but otherwise normal appearing. No evidence of colitis. No evidence of masses or adenopathy. Her hematocrit has been stable overnight and her INR this morning is still supratherapeutic at 3.85. It has not been reversed. She noticed in her diarrhea that she had a couple dots of red blood, but otherwise no significant bleeding. She has been on a clear liquid diet today and has tolerated this prior to me seeing her. Her past medical history is significant for history of paroxysmal atrial fibrillation, type 2 diabetes mellitus, rheumatoid arthritis, hypertension, gastroesophageal reflux disease, restless leg syndrome, loop recorder insertion, , appendectomy, cholecystectomy. Medications include Arensia, alendronate, atorvastatin, carvidelol, vitamin D3, B12, Trulicity, iron, hydroxychloroquine, irbesartan, luflunamide, metformin, omeprazole, Dilantin, Salagen, prednisone, ropinorole, and Coumadin. Physical exam reveals a pleasant 68-year-old who looks her stated age. HEENT is unremarkable. Lungs are clear anteriorly. Heart is irregular with multiple irregular beats. Abdomen: Soft, nontender, nondistended. IMPRESSION AND PLAN: The patient had GI bleed of undetermined etiology. However, with this long ongoing diarrhea issue, I do feel that she is going to need a colonoscopy and I would recommend an upper endoscopy as well. She does have a family that she wants to go to tomorrow. I do feel that is a reasonable option for her given that she is not having any ongoing bleeding despite having a supratherapeutic INR still at this point. I do feel that it is reasonable to have her progress her diet first and see how she does with that, but if she tolerates that then I would keep her off the Coumadin. I would be glad to see her in the office this week and then set up her upper and lower endoscopy as soon as possible. Otherwise, we can attempt to contact Dr. Lutz and possibly he can fit her in sooner. Dr. Benites is recruiting operations consultant this weekend and I will discuss the case with him should she still be here during the weekend. Otherwise, continue as you are doing. Typically, I feel that this is unlikely to be an upper GI source, most likely a lower GI source and could even be secondary to hemorrhoids given her history of diarrhea issues.
[2019-01-17 14:00] VITALS: BP 109/69
--- NOTE | 2019-01-17 16:00 | DS.PDOC ---
Discharge Summary General Date of Admission Jan 16, 2019 at 20:48 Date of Discharge 01/17/19 Specialist/Consultants Involve: Ruslan Fernandes,Bartolo Rasmussen Discharge Summary PROCEDURES PERFORMED DURING STAY: [None]. ADMITTING DIAGNOSES: Upper GI Bleed DISCHARGE DIAGNOSES: GI bleed NOS Supertherapeutic INR COMPLICATIONS/CHIEF COMPLAINT: GIB. HISTORY OF PRESENT ILLNESS & Hospital Course: 68 y/o F Paroxysmal atrial fibrillation, Type 2 diabetes, Rheumatoid arthritis, Hypertension, GERD, Restless leg syndrome who was sent to the emergency department by Dr. Bhatt's office for supratherapeutic INR with concurrent GI bleed possible due to coumadin. Patient states that for the past 5-7 days she has felt weak, tired and has noticed dark loose stool as well as bright red blood in her stool. She states this has never happened before. She has had a supratherapeutic INR up to 8 in the outpatient setting for the past month but never with any GI bleeding, she states she thinks this happens because she does not follow the dietary recommendations that come with taking warfarin too well. She otherwise has no complaints currently. Stool occult done in ED was positive for bright red blood per rectum. While inpatient her Hgb was monitored, remained stable at ~10, she was tolerating Clear liquid diet overnight and was advanced to full diet in the afternoon. She was seen by Dr. Mercer who agrees patient would benefit from EGD/colonoscopy however given her social situation (her sisters is tomorrow which she would like to attend) and her stable vital signs and hemoglobin that this could be done as an outpatient if we are able to advance her diet without any issues. As her INR is elevated at 3.85 this is likely contributory to her bleeding presentation as etiology is hemorrhoidal vs upper GIB from ulcer. Patient is also able to follow up with Dr. Lutz if she can arrange a close follow up appointment. While awaiting colonoscopy/EGD she is instructed to stop her Coumadin and hold Iron tablets for now. Risks of GIB currently outweigh the risk of CVA for A. fib at this time. Patient informed of plan and agrees with plan, aware of risks and reviewed return precautions. DISCHARGE MEDICATIONS: Please see below. ALLERGIES: Please see below. PHYSICAL EXAMINATION ON DISCHARGE: VITAL SIGNS: Please see below. GENERAL: Elderly Female, NAD, resting comfortably in bed HEENT: EOMI, MMM, mild pallor NECK: supple, no LAD or masses CARDIOVASCULAR EXAMINATION: S1/S2 present, RRR, no m/r/g RESPIRATORY EXAMINATION: clear to auscultation b/l, no w/r/r ABDOMINAL EXAMINATION: soft, nt, nd, no bruising, bowel sounds present. EXTREMITIES: No edema, no focal neurologic deficits. Ambulating well. strength 5/5 SKIN: no bruising, no erythema NEUROLOGICAL EXAMINATION: A&Ox3, no focal neurologic deficits. PSYCHIATRIC EXAMINATION: appropriate mood and affect LABORATORY DATA: Please see below. IMAGING: CT Abd/Pelvis: IMPRESSION: No acute finding. Enlarged liver with diffuse fatty infiltration. No masses. PROGNOSIS: Fair ACTIVITY: [As tolerated]. DIET: Low sodium diabetic diet DISCHARGE PLAN: Discharge home, Follow up with Dr. Mercer in 1 week for outpatient EGD/Colonoscopy. Hold Coumadin. PMD follow up with in the next month. DISPOSITION: Discharge home DISCHARGE INSTRUCTIONS: 1. Discharge home, Follow up with Dr. Mercer in 1 week for outpatient EGD/Colonoscopy. Hold Coumadin. PMD follow up with in the next month. ITEMS TO FOLLOWUP ON ON OUTPATIENT: 1. Follow up hemoglobin levels. Follow up EGD/Colonoscopy as outpatient. Restart Coumadin based on EGD/Colonoscopy. DISCHARGE CONDITION: [Stable]. TIME SPENT ON DISCHARGE: Greater than 35 minutes. Vital Signs/I&Os Vital Signs Date Time Temp Pulse Resp B/P (MAP) Pulse Ox O2 Delivery O2 Flow Rate FiO2 01/17/19 14:00 97.9 69 18 109/69 (82) 95 01/16/19 17:22 Room Air I&O- Last 24 Hours up to 6 AM 01/17/19 06:00 Intake Total 60 ml Output Total 0 ml Balance 60 ml Laboratory Data Labs 24H Laboratory Tests 2 01/16/19 17:58: Immature Granulocyte % (Auto) 0.2, White Blood Count 5.3, Red Blood Count 3.44L, Hemoglobin 10.3L, Hematocrit 30.8L, Mean Corpuscular Volume 89.5, Mean Corpuscular Hemoglobin 29.9, Mean Corpuscular Hemoglobin Concent 33.4, Red Cell Distribution Width 13.5, Platelet Count 163, Neutrophils (%) (Auto) 40.4, Lymphocytes (%) (Auto) 41.1, Monocytes (%) (Auto) 13.5H, Eosinophils (%) (Auto) 4.0H, Basophils (%) (Auto) 0.8, Neutrophils # (Auto) 2.1, Lymphocytes # (Auto) 2.2, Monocytes # (Auto) 0.7, Eosinophils # (Auto) 0.2, Basophils # (Auto) 0.0, Nucleated Red Blood Cells % (auto) 0.0, Prothrombin Time 37.6H, Prothromb Time International Ratio 3.81, Activated Partial Thromboplast Time 46.1H, Anion Gap 7L, Glomerular Filtration Rate > 60.0, Blood Urea Nitrogen 16, Creatinine 0.87, Sodium Level 141, Potassium Level 3.3L, Chloride Level 103, Carbon Dioxide Level 31, Calcium Level 7.7L, Aspartate Amino Transf (AST/SGOT) 23, Alanine Aminotransferase (ALT/SGPT) 17, Alkaline Phosphatase 90, Total Bilirubin 0.2, Total Protein 6.6, Albumin 3.2, Albumin/Globulin Ratio 0.94L 01/17/19 00:49: Bedside Glucose (Misc Panel) 96 01/17/19 05:43: Immature Granulocyte % (Auto) 0.2, White Blood Count 4.6, Red Blood Count 3.22L, Hemoglobin 9.8L, Hematocrit 28.7L, Mean Corpuscular Volume 89.1, Mean Corpuscular Hemoglobin 30.4, Mean Corpuscular Hemoglobin Concent 34.1, Red Cell Distribution Width 13.4, Platelet Count 122L, Neutrophils (%) (Auto) 42.0, Lymphocytes (%) (Auto) 40.9, Monocytes (%) (Auto) 12.1H, Eosinophils (%) (Auto) 3.9H, Basophils (%) (Auto) 0.9, Neutrophils # (Auto) 1.9, Lymphocytes # (Auto) 1.9, Monocytes # (Auto) 0.6, Eosinophils # (Auto) 0.2, Basophils # (Auto) 0.0, Nucleated Red Blood Cells % (auto) 0.0, Prothrombin Time 37.9H, Prothromb Time International Ratio 3.85, Anion Gap 6L, Glomerular Filtration Rate > 60.0, Blood Urea Nitrogen 11, Creatinine 0.64, Sodium Level 143, Potassium Level 3.2L, Chloride Level 106, Carbon Dioxide Level 31, Calcium Level 7.6L 01/17/19 11:19: Bedside Glucose (Misc Panel) 117H CBC/BMP Laboratory Tests 01/16/19 17:58 Red Blood Count 3.44 L, Mean Corpuscular Volume 89.5, Mean Corpuscular Hemoglobin 29.9, Mean Corpuscular Hemoglobin Concent 33.4, Red Cell Distribution Width 13.5, Neutrophils (%) (Auto) 40.4, Lymphocytes (%) (Auto) 41.1, Monocytes (%) (Auto) 13.5 H, Eosinophils (%) (Auto) 4.0 H, Basophils (%) (Auto) 0.8, Neutrophils # (Auto) 2.1, Lymphocytes # (Auto) 2.2, Monocytes # (Auto) 0.7, Eosinophils # (Auto) 0.2, Basophils # (Auto) 0.0, Calcium Level 7.7 L, Aspartate Amino Transf (AST/SGOT) 23, Alanine Aminotransferase (ALT/SGPT) 17, Alkaline Phosphatase 90, Total Bilirubin 0.2, Total Protein 6.6, Albumin 3.2 01/17/19 00:46 01/17/19 05:43 Red Blood Count 3.22 L, Mean Corpuscular Volume 89.1, Mean Corpuscular Hemoglobin 30.4, Mean Corpuscular Hemoglobin Concent 34.1, Red Cell Distribution Width 13.4, Neutrophils (%) (Auto) 42.0, Lymphocytes (%) (Auto) 40.9, Monocytes (%) (Auto) 12.1 H, Eosinophils (%) (Auto) 3.9 H, Basophils (%) (Auto) 0.9, Neutrophils # (Auto) 1.9, Lymphocytes # (Auto) 1.9, Monocytes # (Auto) 0.6, Eo sinophils # (Auto) 0.2, Basophils # (Auto) 0.0, Calcium Level 7.6 L 01/17/19 12:04 FSBS Laboratory Tests Test 01/17/19 00:49 01/17/19 11:19 Range/Units Bedside Glucose (Misc Panel) 96 117 83-110 MG/DL Discharge Medications Scheduled Abatacept Injection (Orencia 250 mg Vial) 250 Mg Inj, 250 MG IV QMONTH, (Reporte d) DUE 01/17/19 Alendronate Sodium (Alendronate Sodium) 70 Mg Tablet, 70 MG PO QWEEK, (Reported) SATURDAYS Atorvastatin Calcium (Atorvastatin Calcium) 40 Mg Tab, 40 MG PO DAILY, (Reported) Carvedilol (Carvedilol) 6.25 Mg Tab, 6.25 MG PO BID, (Reported) Cholecalciferol (Vitamin D3) (Vitamin D3) 5,000 Unit Cap, 5,000 UNIT PO DAILY, (Reported) Cyanocobalamin (Vitamin B-12) (B-12 Dual Spectrum) 5,000 Mcg Tab, 5,000 MCG PO DAILY, (Reported) Dulaglutide (Trulicity) 1.5 Mg/0.5 Ml Pen.injctr, 1.5 MG SC QWEEK, (Reported) SATURDAYS Hydroxychloroquine Sulfate (Hydroxychloroquine Sulfate) 200 Mg Tab, 200 MG PO BID, (Reported) Irbesartan (Irbesartan) 75 Mg Tab, 75 MG PO QHS, (Reported) Leflunomide (Leflunomide) 20 Mg Tab, 20 MG PO DAILY, (Reported) Metformin HCl (Metformin HCl) 850 Mg Tablet, 850 MG PO BID, (Reported) Omeprazole (Omeprazole) 20 Mg Cap, 20 MG PO DAILY, (Reported) Phenytoin Sodium Extended (Dilantin) 100 Mg Cap, 200 MG PO TID, (Reported) Pilocarpine HCl (Salagen) 5 Mg Tablet, 5 MG PO TID, (Reported) Prednisone (Prednisone) 5 Mg Sergey, 5 MG PO Q2D, (Reported) PT RAN OUT OF MED A COUPLE DAYS AGO Ropinirole HCl (Ropinirole HCl) 0.25 Mg Tab, 0.25 MG PO BID, (Reported) Allergies Coded Allergies: infliximab (Verified Allergy, Unknown, not sure what reaction is, 01/16/19) lisinopril (Verified Adverse Reaction, Mild, cough, 01/16/19) MESFIN SMITH MD Jan 17, 2019 16:00
== END 2019-01-17 18:10 | disposition home or self-care (01) | DRG 813 ==
LOC: M ED 17:21 → M ED INP 20:48 → M MS5PR 01-17 00:30
PROVIDERS: ADMIT Internal Medicine Nephrology; ATTEND Internal Medicine
DX: D68.32 Hemorrhagic disorder due to extrinsic circulating anticoagulants (principal); K92.2 Gastrointestinal hemorrhage, unspecified; I48.0 Paroxysmal atrial fibrillation; E11.9 Type 2 diabetes mellitus without complications; M06.9 Rheumatoid arthritis, unspecified; I10 Essential (primary) hypertension; K21.9 Gastro-esophageal reflux disease without esophagitis; G25.81 Restless legs syndrome; G40.909 Epilepsy, unspecified, not intractable, without status epilepticus; Z79.01 Long term (current) use of anticoagulants; Z79.899 Other long term (current) drug therapy; Z88.8 Allergy status to other drugs, medicaments and biological substances

== ENCOUNTER → 2019-02-06 | Outpatient (CLI) | payer MEDICARE ==
[~2019-02-06] MED LIST changes: +ALEN70TA74 PO; +METF-954 PO; -METF750T PO; +METF750T36 PO; +SALA1TAB PO; +TRUL0.5I SC; +WARF-58 PO
[2019-02-06 17:26] LABS: APPEARANCE, URINE HAZY (CLEAR); BACTERIA, URINE AUTO NEGATIVE (NEGATIVE); BASO % 0.6 % (0.0-1.0); BILIRUBIN, URINE AUTO NEGATIVE (NEGATIVE); BLOOD, URINE BLOOD NEGATIVE (NEGATIVE); COLOR, URINE YELLOW (YELLOW); EOS # 0.2 10^3/uL (0.0-0.5); EOS % 4.3 % (0.0-3.0); GLUCOSE, URINE (UA) AUTO NEGATIVE (NEGATIVE); HEMATOCRIT 34.2 % (36.0-47.0); HEMOGLOBIN 10.9 g/dl (12.0-15.5); KETONE, URINE AUTO NEGATIVE (NEGATIVE); LEUKOCYTE ESTERASE, URINE AUTO TRACE (NEGATIVE); LYMPH # 2.5 10^3/uL (1.5-5.0); LYMPH % 45.7 % (24.0-44.0); MEAN CORPUSCULAR HGB CONC 31.9 g/dl (32.0-36.5); MEAN CORPUSCULAR VOLUME 94.2 fl (80.0-96.0); MONO # 0.8 10^3/uL (0.0-0.8); MONO % 14.1 % (0.0-5.0); MUCUS, URINE SMALL (NEGATIVE); NEUTROPHILS # 1.9 10^3/uL (1.5-8.5); NEUTROPHILS % 35.1 % (36.0-66.0); NITRITE, URINE AUTO NEGATIVE (NEGATIVE); PLATELET COUNT, AUTOMATED 217 10^3/uL (150-450); PROTEIN, URINE AUTO NEGATIVE (NEGATIVE); RBC, URINE AUTO 2 /HPF (0-3); RED BLOOD COUNT 3.63 10^6/uL (4.00-5.40); SPECIFIC GRAVITY URINE AUTO 1.025 (1.002-1.035); SQUAMOUS EPITHELIAL CELL UR AU 3 /HPF (0-6); UROBILINOGEN, URINE AUTO 0.2 mg/dL (0.0-2.0); WBC, URINE AUTO 5 /HPF (0-3); WHITE BLOOD COUNT 5.4 10^3/uL (4.0-10.0)
[2019-02-06 18:02] LABS: ALBUMIN 3.4 GM/DL (3.2-5.2); ALT/SGPT 29 U/L (12-78); BILIRUBIN,TOTAL 0.2 MG/DL (0.2-1.0); BLOOD UREA NITROGEN 11 MG/DL (7-18); CALCIUM LEVEL 8.8 MG/DL (8.8-10.2); CARBON DIOXIDE LEVEL 27 MEQ/L (21-32); CHLORIDE LEVEL 105 MEQ/L (98-107); CHOLESTEROL LEVEL 133 MG/DL (<200); CHOLESTEROL RISK RATIO 2.015 (<5); CREATININE FOR GFR 0.68 MG/DL (0.55-1.30); FREE T4 0.85 NG/DL (0.76-1.46); GLOMERULAR FILTRATION RATE > 60.0 (>39); GLUCOSE, FASTING 108 MG/DL (70-100); HDL CHOLESTEROL 66 MG/DL (>40); LDL CHOLESTEROL 43 MG/DL (<100); NON-HDL-C 67 MG/DL; SODIUM LEVEL 141 MEQ/L (136-145); TRIGLYCERIDES LEVEL 121 MG/DL (<150)
[2019-02-06 18:04] LABS: TOTAL 25(OH) VITAMIN D 51.1 NG/ML (30.0-100.0); VITAMIN B12 LEVEL 1004 PG/ML (247-911)
== END ==
LOC: M LAB 14:51
PROVIDERS: ATTEND Family Medicine
DX: E11.9 Type 2 diabetes mellitus without complications (principal); E78.5 Hyperlipidemia, unspecified; I10 Essential (primary) hypertension; E55.9 Vitamin D deficiency, unspecified; D51.9 Vitamin B12 deficiency anemia, unspecified; Z79.01 Long term (current) use of anticoagulants

== ENCOUNTER → 2019-02-06 | Outpatient (CLI) | payer MEDICARE ==
[2019-02-06 17:37] LABS: PROTHROMBIN TIME 12.9 SECONDS (11.8-14.0)
== END ==
LOC: M LAB 15:12
PROVIDERS: ATTEND Physician Assistant
DX: Z79.01 Long term (current) use of anticoagulants (principal)

== ENCOUNTER 2019-02-25 18:05 | Emergency (ER) | payer MEDICARE ==
[2019-02-25] MEDS ORDERED: ELIQ5TAB OR (18:23)
[2019-02-25 19:15] LABS: BASO % 0.5 % (0.0-1.0); EOS # 0.2 10^3/uL (0.0-0.5); EOS % 3.3 % (0.0-3.0); HEMATOCRIT 34.6 % (36.0-47.0); HEMOGLOBIN 11.5 g/dl (12.0-15.5); LYMPH # 2.1 10^3/uL (1.5-5.0); LYMPH % 36.5 % (24.0-44.0); MEAN CORPUSCULAR HEMOGLOBIN 31.1 pg (27.0-33.0); MEAN CORPUSCULAR HGB CONC 33.2 g/dl (32.0-36.5); MEAN CORPUSCULAR VOLUME 93.5 fl (80.0-96.0); MONO # 0.8 10^3/uL (0.0-0.8); NEUTROPHILS # 2.7 10^3/uL (1.5-8.5); NEUTROPHILS % 46.4 % (36.0-66.0); PLATELET COUNT, AUTOMATED 177 10^3/uL (150-450); WHITE BLOOD COUNT 5.8 10^3/uL (4.0-10.0)
--- NOTE | 2019-02-25 19:15 | REPVR ---
PROCEDURE INFORMATION: Exam: CT Head Without Contrast Exam date and time: 02/25/2019 6:36 PM Clinical history: 68 years old, female; Pain; Other: Fall; Additional info: Head injury on blood thinners TECHNIQUE: Imaging protocol: Computed tomography of the head without contrast. Radiation optimization: All CT scans at this facility use at least one of these dose optimization techniques: automated exposure control; mA and/or kV adjustment per patient size (includes targeted exams where dose is matched to clinical indication); or iterative reconstruction. COMPARISON: CT Head without contrast 06/02/2013 10:47 AM FINDINGS: Brain: There is parenchymal volume loss. White matter changes are demonstrated in the subcortical, centrum semiovale and periventricular white matter consistent with age related small vessel white matter angiopathic gliosis. Ventricles: The degree of ventricular dilatation is normal for age and/or degree of atrophy present. Bones/joints: Unremarkable. No acute fracture. Sinuses: Visualized sinuses are unremarkable. No fluid levels. Mastoid air cells: Visualized mastoid air cells are well aerated. Soft tissues: Unremarkable. IMPRESSION: 1. There is parenchymal volume loss. White matter changes are demonstrated in the subcortical, centrum semiovale and periventricular white matter consistent with age related small vessel white matter angiopathic gliosis. 2. The degree of ventricular dilatation is normal for age and/or degree of atrophy present. Electronically signed by: Shamar Leung On 02/25/2019 19:15:27 PM
--- NOTE | 2019-02-25 19:21 | REPVR ---
PROCEDURE INFORMATION: Exam: CT Cervical Spine Without Contrast Exam date and time: 02/25/2019 6:36 PM Clinical history: 68 years old, female; Pain; Other: Fall; Additional info: Head injury on blood thinners TECHNIQUE: Imaging protocol: Computed tomography images of the cervical spine without contrast. Radiation optimization: All CT scans at this facility use at least one of these dose optimization techniques: automated exposure control; mA and/or kV adjustment per patient size (includes targeted exams where dose is matched to clinical indication); or iterative reconstruction. COMPARISON: CT Spine,cervical w/o contrast 05/31/2013 10:38 AM FINDINGS: Vertebrae: No acute fracture. Normal alignment. Discs/Spinal canal/Neural foramina: Degenerative changes atlantoaxial joint. Disc space narrowing at C4-5, C5-6, C6-7, and C7-T1 with intervertebral osteophytes Severe foraminal stenosis on the right at C3, moderate to severe bilateral foraminal stenosis at C4, moderate bilateral foraminal stenosis at C5, mild foraminal stenosis on the right at C6 secondary to uncinate joint hypertrophic changes. Disc osteophyte complexes at C4-5, C5-6 and C6-7 most pronounced on the left at C5-6 resulting in mild left hemicord impingement. Soft tissues: Unremarkable. Lungs: Lung apices are normal. IMPRESSION: Degenerative spondylosis. No acute findings. Electronically signed by: Shamar Leung On 02/25/2019 19:20:56 PM
[2019-02-25 19:28] LABS: INR 1.1; PROTHROMBIN TIME 13.9 SECONDS (11.8-14.0)
[2019-02-25 19:29] LABS: PARTIAL THROMBOPLASTIN TIME 29.2 SECONDS (25.0-38.4)
[2019-02-25 19:44] LABS: ALBUMIN 3.6 GM/DL (3.2-5.2); ALT/SGPT 41 U/L (12-78); BILIRUBIN,DIRECT 0.2 MG/DL (0.0-0.2); BILIRUBIN,TOTAL 0.4 MG/DL (0.2-1.0); BLOOD UREA NITROGEN 12 MG/DL (7-18); CALCIUM LEVEL 9.1 MG/DL (8.8-10.2); CARBON DIOXIDE LEVEL 30 MEQ/L (21-32); CHLORIDE LEVEL 103 MEQ/L (98-107); CK-MB VALUE MASS < 1.0 NG/ML (<3.6); CPK CREATINE PHOSPHOKINASE 51 U/L (26-192); CREATININE FOR GFR 0.72 MG/DL (0.55-1.30); FREE T4 1.08 NG/DL (0.76-1.46); GLOMERULAR FILTRATION RATE > 60.0 (>39); GLUCOSE, FASTING 94 MG/DL (70-100); MB/CK RELATIVE INDEX 1.96 (< OR =4); POTASSIUM SERUM 4.1 MEQ/L (3.5-5.1); SODIUM LEVEL 139 MEQ/L (136-145); TOTAL PROTEIN 7.2 GM/DL (6.4-8.2); TROPONIN I < 0.02 NG/ML (< 0.10)
[2019-02-25 20:00] VITALS: BP 133/74
--- NOTE | 2019-02-25 20:49 | ECGEPIP ---
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
--- NOTE | 2019-02-25 21:17 | REP ---
HISTORY: Trauma. COMPARISON: Multiple, the latest 03/05/2018. FINDINGS: The superior mediastinal structures are midline. The cardiac silhouette is unremarkable in size, shape and position. The diaphragmatic surfaces of the lungs are regular and the costophrenic angles are clear. The pulmonary rodriguez are clear. The imaged osseous structures are intact. IMPRESSION: There is no acute cardiopulmonary disease. No change from the prior exam. Electronically Signed by Cecil Sun DO 02/26/2019 02:11 P
== END 2019-02-25 20:36 | disposition home or self-care (01) ==
LOC: M ED 18:05
DX: S09.90XA Unspecified injury of head, initial encounter (principal); W22.8XXA Striking against or struck by other objects, initial encounter; Y92.89 Other specified places as the place of occurrence of the external cause; I48.91 Unspecified atrial fibrillation; E11.9 Type 2 diabetes mellitus without complications; I10 Essential (primary) hypertension; M06.9 Rheumatoid arthritis, unspecified; K21.9 Gastro-esophageal reflux disease without esophagitis; G25.81 Restless legs syndrome; Z88.8 Allergy status to other drugs, medicaments and biological substances; Z79.01 Long term (current) use of anticoagulants; Z79.899 Other long term (current) drug therapy

== ENCOUNTER → 2019-04-25 | Outpatient (CLI) | payer MEDICARE ==
[~2019-04-25] MED LIST changes: +ELIQ5TAB OR
--- NOTE | 2019-04-25 14:34 | REP ---
MRI brain: 04/25/2019. Indication: Dizziness. Dizziness. Comparison: 05/31/2013. Technique: Multiplanar short and long TR sequences of the brain were obtained without IV Gadolinium. Findings: There are no areas of restricted diffusion to suggest an acute infarction. There is no intracranial mass effect, hydrocephalus or significant hemorrhage. Mild diffuse volume loss is present. There are a few areas of elevated white matter T2 prolongation most consistent with chronic small vessel disease. Chronic left greater than right basal ganglia/serra radiata lacunar infarctions are present. Mildly prominent Virchow-Roney spaces are present within the basal ganglia bilaterally. The large intracranial flow voids are unremarkable. Impression: No acute intracranial process. Volume loss and sequelae of chronic microangiopathic ischemic disease. Electronically Signed by Arun Haney DO 04/25/2019 02:26 P
== END ==
LOC: M PLARAD 11:34
PROVIDERS: ATTEND Psychiatry & Neurology Neurology
DX: R42 Dizziness and giddiness (principal)

== ENCOUNTER 2019-07-04 13:32 | Emergency (ER) | payer MEDICARE ==
[~2019-07-04] VITALS: Ht 165.1 cm; Wt 68.5 kg
[~2019-07-04 13:32] MED LIST changes: -IRBE150T12 PO; +IRBE150T7 PO; +IRBE75TA4 PO; -IRBE75TA5 PO; +OMEP1CAP73 PO; -OMEP20CA4 PO
[2019-07-04] MEDS ORDERED: MECLIZINE 25 MG TABLET PO ONE (13:45)
--- NOTE | 2019-07-04 14:06 | REP ---
Clinical: Syncope. Comparison: 02/25/2019 . Findings: Age-related atrophy with periventricular leukomalacia and microvascular ischemic changes are appreciated. The ventricles and sulci are symmetric. Miramontes-white differentiation is maintained. There is no evidence for acute intracranial hemorrhage, mass/mass effect, pathology or infarction. No extra-axial fluid collection. Calvarium is intact. Paranasal sinuses and mastoid air cells are clear. Impression: Age related atrophy and microvascular ischemic changes. No acute intracranial hemorrhage, infarction, or mass/mass effect. Electronically Signed by Ralph Garrison MD 07/04/2019 01:56 P
[2019-07-04 14:07] LABS: VENOUS BASE EXCESS 4.5 (-2.0-2.0); VENOUS HCO3 31.3 MEQ/L (23.0-27.0); VENOUS PARTIAL PRESSURE CO2 56.9 mmHg (38.0-50.0); VENOUS PARTIAL PRESSURE O2 23.7 mmHg (30.0-50.0); VENOUS PH 7.358 UNITS (7.330-7.430); VENOUS STANDARD HCO3 27.3 MEQ/L
--- NOTE | 2019-07-04 14:08 | REP ---
Clinical: Syncope/near syncope . Comparison: 02/25/2019 . Findings: The mediastinum and cardiac silhouette are stable and within normal limits for portable technique. The lung rodriguez demonstrate chronic interstitial changes without acute consolidation, effusion, or pneumothorax. Skeletal structures are intact. Impression: No acute cardiopulmonary process appreciated. Electronically Signed by Ralph Garrison MD 07/04/2019 01:59 P
[2019-07-04 14:12] LABS: BASO % 0.2 % (0.0-1.0); EOS # 0.1 10^3/uL (0.0-0.5); EOS % 0.6 % (0.0-3.0); HEMATOCRIT 33.8 % (36.0-47.0); HEMOGLOBIN 11.3 g/dl (12.0-15.5); LYMPH # 1.1 10^3/uL (1.5-5.0); LYMPH % 12.5 % (24.0-44.0); MEAN CORPUSCULAR HEMOGLOBIN 30.5 pg (27.0-33.0); MEAN CORPUSCULAR HGB CONC 33.4 g/dl (32.0-36.5); MEAN CORPUSCULAR VOLUME 91.4 fl (80.0-96.0); MONO # 0.7 10^3/uL (0.0-0.8); MONO % 8.3 % (0.0-5.0); NEUTROPHILS # 6.8 10^3/uL (1.5-8.5); NEUTROPHILS % 77.9 % (36.0-66.0); PLATELET COUNT, AUTOMATED 160 10^3/uL (150-450); WHITE BLOOD COUNT 8.8 10^3/uL (4.0-10.0)
[2019-07-04] MEDS ORDERED: MAGN400T2 PO (14:15)
[2019-07-04] MEDS ORDERED: iron PO (14:15)
[2019-07-04] MEDS ORDERED: REST0.05 OP (14:15)
[2019-07-04] MEDS ORDERED: XARE20TA (14:15)
[2019-07-04] MEDS ORDERED: OMEP-218 (14:15)
[2019-07-04 14:23] LABS: INR 1.17; PROTHROMBIN TIME 14.6 SECONDS (11.8-14.0)
[2019-07-04 14:52] LABS: BLOOD UREA NITROGEN 20 MG/DL (7-18); CALCIUM LEVEL 8.8 MG/DL (8.8-10.2); CARBON DIOXIDE LEVEL 33 MEQ/L (21-32); CHLORIDE LEVEL 101 MEQ/L (98-107); CK-MB VALUE MASS < 1.0 NG/ML (<3.6); CPK CREATINE PHOSPHOKINASE 72 U/L (26-192); CREATININE FOR GFR 0.99 MG/DL (0.55-1.30); GLUCOSE, FASTING 189 MG/DL (70-100); MAGNESIUM LEVEL 1.4 MG/DL (1.8-2.4); MB/CK RELATIVE INDEX 1.39 (< OR =4); POTASSIUM SERUM 3.6 MEQ/L (3.5-5.1); SODIUM LEVEL 142 MEQ/L (136-145); TROPONIN I < 0.02 NG/ML (< 0.10)
[2019-07-04] MEDS ORDERED: MECL1TAB31 PO (15:43)
[2019-07-04 16:01] VITALS: BP 158/68
--- NOTE | 2019-07-04 18:08 | ECGEPIP ---
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
== END 2019-07-04 16:25 | disposition home or self-care (01) ==
LOC: EDBD 13:32 → M ED 13:32
DX: S09.90XA Unspecified injury of head, initial encounter (principal); R42 Dizziness and giddiness; W18.39XA Other fall on same level, initial encounter; Y92.098 Other place in other non-institutional residence as the place of occurrence of the external cause; I10 Essential (primary) hypertension; E11.9 Type 2 diabetes mellitus without complications; Z91.81 History of falling; Z88.8 Allergy status to other drugs, medicaments and biological substances; Z79.899 Other long term (current) drug therapy; Z79.52 Long term (current) use of systemic steroids; Z79.84 Long term (current) use of oral hypoglycemic drugs; Z79.01 Long term (current) use of anticoagulants

== ENCOUNTER 2019-07-17 11:04 | Emergency (ER) | payer MEDICARE ==
[~2019-07-17] VITALS: Ht 165.1 cm; Wt 64.5 kg
[~2019-07-17 11:04] MED LIST changes: +MAGN400T2 PO; +MECL1TAB31 PO; +OMEP-218; +REST0.05 OP; +XARE20TA; +iron PO
[2019-07-17 12:12] LABS: BASO % 0.5 % (0.0-1.0); EOS # 0.1 10^3/uL (0.0-0.5); EOS % 2.2 % (0.0-3.0); HEMATOCRIT 30.9 % (36.0-47.0); HEMOGLOBIN 10.5 g/dl (12.0-15.5); LYMPH # 1.9 10^3/uL (1.5-5.0); LYMPH % 28.8 % (24.0-44.0); MEAN CORPUSCULAR HEMOGLOBIN 30.6 pg (27.0-33.0); MEAN CORPUSCULAR VOLUME 90.1 fl (80.0-96.0); MONO # 0.4 10^3/uL (0.0-0.8); MONO % 6.8 % (0.0-5.0); NEUTROPHILS % 61.4 % (36.0-66.0); PLATELET COUNT, AUTOMATED 214 10^3/uL (150-450); RED BLOOD COUNT 3.43 10^6/uL (4.00-5.40); WHITE BLOOD COUNT 6.4 10^3/uL (4.0-10.0)
[2019-07-17 12:44] LABS: ALBUMIN 3.1 GM/DL (3.2-5.2); ALT/SGPT 40 U/L (12-78); BILIRUBIN,DIRECT < 0.1 MG/DL (0.0-0.2); BILIRUBIN,TOTAL 0.2 MG/DL (0.2-1.0); BLOOD UREA NITROGEN 16 MG/DL (7-18); CALCIUM LEVEL 9.1 MG/DL (8.8-10.2); CARBON DIOXIDE LEVEL 27 MEQ/L (21-32); CHLORIDE LEVEL 108 MEQ/L (98-107); CREATININE FOR GFR 0.89 MG/DL (0.55-1.30); GLOMERULAR FILTRATION RATE > 60.0 (>39); GLUCOSE, FASTING 87 MG/DL (70-100); LIPASE 50 U/L (73-393); POTASSIUM SERUM 3.7 MEQ/L (3.5-5.1); SODIUM LEVEL 141 MEQ/L (136-145); TOTAL PROTEIN 6.9 GM/DL (6.4-8.2)
--- NOTE | 2019-07-17 13:48 | REP ---
CHEST X-RAY: Two views. HISTORY: Pneumonia. COMPARISON CHEST X-RAY: February 25, 2019. FINDINGS: The lungs are symmetrically aerated and free of infiltrate. Pleural angles are sharp. EKG electrodes are seen. Heart is not enlarged. Pulmonary vasculature is not increased. There is a healing fracture of the distal clavicle on the right and diffuse osteopenia is noted. IMPRESSION: No active cardiopulmonary disease. Healing right distal clavicle fracture. Electronically Signed by Tony Renteria MD 07/17/2019 02:34 P
[2019-07-17 13:58] LABS: INFLUENZA A AMPLIFICATION NEGATIVE (NEGATIVE); INFLUENZA B AMPLIFICATION NEGATIVE (NEGATIVE)
[2019-07-17 14:37] LABS: PHENYTOIN (DILANTIN) 12.6 UG/ML (10.0-20.0)
[2019-07-17] MEDS ORDERED: ISOVUE-370 76% 100ML VIAL (Q9967) As Ordered ONE (14:55)
--- NOTE | 2019-07-17 15:33 | REP ---
CT of the chest with IV contrast for right lower lobe pneumonia, weight loss and vomiting: Comparison is 03/05/2018. There are no infiltrates, particularly in the right lower lobe. There are no pleural effusions. There are no masses or nodules. The There is no mediastinal, hilar or axillary lymph node enlargement. The thoracic aorta is unremarkable. Cardiac size is normal. Impression: Essentially negative CT study of the chest. There are no infiltrates. There are no masses, nodules or adenopathy. Electronically Signed by Vin Brumfield MD 07/17/2019 03:24 P
--- NOTE | 2019-07-17 15:38 | REP ---
The pelvis with IV contrast, without bowel contrast for weight loss and vomiting: Comparison is a 2018. The hepatic parenchyma is homogeneous. There are no hepatic masses. The gallbladder surgically absent. The pancreas and spleen are unremarkable. The adrenals are unremarkable. There is mild renal cortical scarring bilaterally. The kidneys are otherwise unremarkable. There is no hydronephrosis. The abdominal aorta is unremarkable. There is no periaortic adenopathy or mass. There is no bowel distension or obstruction. The pelvis: The appendix is surgically absent. The uterus and adnexa are unremarkable. There is no adenopathy or ascites. The bladder is unremarkable. The pelvic bowel loops are unremarkable. There are no lytic, blastic or destructive skeletal changes. Impression: There is no adenopathy, mass or ascites. There is a cholecystectomy and appendectomy. There is mild bilateral renal cortical scarring. No hydronephrosis. No renal masses. Otherwise, negative CT study of the abdomen and pelvis. Electronically Signed by Vin Brumfield MD 07/17/2019 03:30 P
[2019-07-17 16:15] VITALS: BP 123/73
[2019-07-17] MEDS ORDERED: CEFD1CAP8 PO (16:16)
[2019-07-17] MEDS ORDERED: ONDA4TAB6 PO (16:19)
[2019-07-17] MEDS ORDERED: CEFDINIR 300 MG CAP (OMNICEF) PO ONE (16:30)
--- NOTE | 2019-07-17 23:17 | ECGEPIP ---
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
== END 2019-07-17 16:47 | disposition home or self-care (01) ==
LOC: EDBD 11:04 → M ED 11:04
DX: R11.10 Vomiting, unspecified (principal); T50.995A Adverse effect of other drugs, medicaments and biological substances, initial encounter; X58.XXXA Exposure to other specified factors, initial encounter; Y92.89 Other specified places as the place of occurrence of the external cause; E11.9 Type 2 diabetes mellitus without complications; I10 Essential (primary) hypertension; I48.91 Unspecified atrial fibrillation; M06.9 Rheumatoid arthritis, unspecified; Z79.899 Other long term (current) drug therapy; Z79.01 Long term (current) use of anticoagulants; Z88.8 Allergy status to other drugs, medicaments and biological substances
CPT/HCPCS: 71046; 71260; 74177; 80048; 80076; 80185; 81001; 83690; 85025; 87040; 87086; 87486; 87502; 87581; 87633; 87798; 93005; 99285; Q9967

== ENCOUNTER 2020-11-06 10:21 | Emergency (ER) | payer MEDICARE ==
[~2020-11-06] VITALS: Ht 167.6 cm; Wt 70.5 kg
[~2020-11-06 10:21] MED LIST changes: -ALEN70TA74 PO; +ALEN70TA82 PO; +CEFD1CAP8 PO; +ONDA4TAB6 PO; -OREN250I IV; +OREN250I2 IV
[2020-11-06] MEDS ORDERED: NS 1,000 ML IV ONE (10:45)
[2020-11-06 11:03] LABS: BASO # 0.1 10^3/uL (0.0-0.2); BASO % 0.5 % (0.0-1.0); EOS # 0.2 10^3/uL (0.0-0.5); EOS % 1.5 % (0.0-3.0); HEMATOCRIT 38.8 % (36.0-47.0); HEMOGLOBIN 12.9 g/dl (12.0-15.5); LYMPH # 1.3 10^3/uL (1.5-5.0); LYMPH % 13.4 % (24.0-44.0); MEAN CORPUSCULAR HEMOGLOBIN 30.4 pg (27.0-33.0); MEAN CORPUSCULAR HGB CONC 33.2 g/dl (32.0-36.5); MEAN CORPUSCULAR VOLUME 91.5 fl (80.0-96.0); NEUTROPHILS # 7.4 10^3/uL (1.5-8.5); NEUTROPHILS % 74.2 % (36.0-66.0); PLATELET COUNT, AUTOMATED 250 10^3/uL (150-450); RED BLOOD COUNT 4.24 10^6/uL (4.00-5.40)
[2020-11-06] MEDS ORDERED: ISOVUE-370 76% 100ML VIAL As Ordered ONE (11:31)
--- NOTE | 2020-11-06 12:09 | REP ---
INDICATION: rectal pain, mass (? abscess). COMPARISON: Multiple the latest 07/17/2019 TECHNIQUE: Standard helical technique after the intravenous administration of 100 cc Isovue 370 FINDINGS: Seen in the perianal soft tissues there is a mixed density seemingly peripheral enhancing 3.9 x 3.7 x 3.5 cm sized lesion. This represents a change from the prior exam. The imaged bowel is otherwise unchanged. There is no free fluid or free air in the pelvis. There is no change in the osseous structures. IMPRESSION: Findings, as described above, consistent with a perianal abscess. <Electronically signed by Cecil Sun > 11/06/20 [id number]
[2020-11-06] MEDS ORDERED: LIDOCAINE W/EPINEPHRINE 1% 20ML VIAL SC ONE (12:30)
[2020-11-06] MEDS ORDERED: SILVER NITRATE APPLICATOR TOP ONE (12:35)
[2020-11-06] MEDS ORDERED: AUGM875T28 PO (13:18)
[2020-11-06 13:29] VITALS: BP 128/76
--- NOTE | 2020-11-08 21:03 | ED PDOC ---
Post-Departure Follow-Up ct pelvis faxed to dr young for fu Slade Jennings MD Nov 08, 2020 21:03
== END 2020-11-06 13:31 | disposition home or self-care (01) ==
LOC: EDBD 10:21 → M ED 10:21
DX: K61.0 Anal abscess (principal); Z88.8 Allergy status to other drugs, medicaments and biological substances
CPT/HCPCS: 46040; 72193; 80047; 85025; 87070; 87205; 87505; 96360; 96361; 99284; Q9967

== ENCOUNTER 2021-04-29 21:14 | Emergency (ER) | payer MEDICARE ==
[~2021-04-29] VITALS: Ht 200.7 cm; Wt 80.5 kg
[~2021-04-29 21:14] MED LIST changes: -ALEN70SO PO; +ALEN70SO2 PO; +AUGM875T28 PO; -CEFD1CAP8 PO; +CEFD300C41 PO; +METF-1191 PO; -METF-954 PO; +OMEP-173; -OMEP-218
[2021-04-29] MEDS ORDERED: GABAPENTIN 100 MG CAP PO ONE (22:05)
[2021-04-29 22:25] LABS: BASO % 0.5 % (0.0-1.0); EOS # 0.1 10^3/uL (0.0-0.5); EOS % 1.9 % (0.0-3.0); HEMATOCRIT 33.9 % (36.0-47.0); HEMOGLOBIN 11.4 g/dl (12.0-15.5); LYMPH # 1.5 10^3/uL (1.5-5.0); LYMPH % 24.3 % (24.0-44.0); MEAN CORPUSCULAR HEMOGLOBIN 30.4 pg (27.0-33.0); MEAN CORPUSCULAR HGB CONC 33.6 g/dl (32.0-36.5); MEAN CORPUSCULAR VOLUME 90.4 fl (80.0-96.0); MONO # 0.6 10^3/uL (0.0-0.8); NEUTROPHILS # 3.9 10^3/uL (1.5-8.5); PLATELET COUNT, AUTOMATED 209 10^3/uL (150-450); RED BLOOD COUNT 3.75 10^6/uL (4.00-5.40); WHITE BLOOD COUNT 6.2 10^3/uL (4.0-10.0)
[2021-04-29 22:46] LABS: CK-MB VALUE MASS < 1.0 NG/ML (<3.6); CPK CREATINE PHOSPHOKINASE 30 U/L (26-192); MB/CK RELATIVE INDEX 3.33 (< OR =4)
[2021-04-29 22:55] LABS: CALCIUM LEVEL 8.7 MG/DL (8.8-10.2); CREATININE FOR GFR 1.01 MG/DL (0.55-1.30); GLOMERULAR FILTRATION RATE 57.4 (>39); POTASSIUM SERUM 4.2 MEQ/L (3.5-5.1)
[2021-04-29] MEDS ORDERED: FURO20TA2 PO (23:32)
[2021-04-30] MEDS ORDERED: NEUR100C PO (00:45)
[2021-04-30 00:46] VITALS: BP 133/79
== END 2021-04-30 01:09 | disposition home or self-care (01) ==
LOC: M ED 21:14
DX: M79.2 Neuralgia and neuritis, unspecified (principal); R00.0 Tachycardia, unspecified; I11.0 Hypertensive heart disease with heart failure; I50.9 Heart failure, unspecified; I48.91 Unspecified atrial fibrillation; E11.9 Type 2 diabetes mellitus without complications; Z88.8 Allergy status to other drugs, medicaments and biological substances; Z79.899 Other long term (current) drug therapy

== ENCOUNTER → 2021-05-02 | Outpatient (CLI) | payer MEDICARE ==
[~2021-05-02] MED LIST changes: +FURO20TA2 PO; +NEUR100C PO
== END ==
LOC: M WUC 15:26
PROVIDERS: ATTEND Physician Assistant
DX: S90.31XA Contusion of right foot, initial encounter (principal); S92.511A Displaced fracture of proximal phalanx of right lesser toe(s), initial encounter for closed fracture; Y92.9 Unspecified place or not applicable; Y93.9 Activity, unspecified; Y99.9 Unspecified external cause status

== ENCOUNTER → 2021-11-09 | Outpatient (REF) | PROVIDERS: ATTEND Physician Assistant | DX: I10 Essential (primary) hypertension (principal); Z53.9 Procedure and treatment not carried out, unspecified reason ==

== ENCOUNTER → 2021-11-10 | Outpatient (REF) ==
[2021-11-10 07:43] LABS: BASO # 0.1 10^3/uL (0.0-0.2); BASO % 0.6 % (0.0-1.0); EOS # 0.3 10^3/uL (0.0-0.5); EOS % 3.1 % (0.0-3.0); HEMATOCRIT 35.3 % (36.0-47.0); HEMOGLOBIN 11.4 g/dl (12.0-15.5); LYMPH # 1.8 10^3/uL (1.5-5.0); MEAN CORPUSCULAR HEMOGLOBIN 29.9 pg (27.0-33.0); MEAN CORPUSCULAR HGB CONC 32.3 g/dl (32.0-36.5); MEAN CORPUSCULAR VOLUME 92.7 fl (80.0-96.0); MONO # 0.9 10^3/uL (0.0-0.8); MONO % 8.7 % (2.0-8.0); NEUTROPHILS # 7.3 10^3/uL (1.5-8.5); NEUTROPHILS % 69.9 % (36.0-66.0); PLATELET COUNT, AUTOMATED 289 10^3/uL (150-450); RED BLOOD COUNT 3.81 10^6/uL (4.00-5.40); WHITE BLOOD COUNT 10.4 10^3/uL (4.0-10.0)
[2021-11-10 08:09] LABS: ALBUMIN 2.8 GM/DL (3.2-5.2); ALT/SGPT 27 U/L (12-78); BILIRUBIN,TOTAL 0.3 MG/DL (0.2-1.0); BLOOD UREA NITROGEN 23 MG/DL (7-18); CALCIUM LEVEL 10.4 MG/DL (8.8-10.2); CARBON DIOXIDE LEVEL 27 MEQ/L (21-32); CHLORIDE LEVEL 101 MEQ/L (98-107); CREATININE FOR GFR 0.91 MG/DL (0.55-1.30); GLOMERULAR FILTRATION RATE > 60.0 (>39); GLUCOSE, FASTING 172 MG/DL (70-100); POTASSIUM SERUM 4.7 MEQ/L (3.5-5.1); SODIUM LEVEL 137 MEQ/L (136-145); TOTAL PROTEIN 7.4 GM/DL (6.4-8.2)
== END ==
LOC: SKLAB7 07:00
PROVIDERS: ATTEND Nurse Practitioner Family
DX: I48.91 Unspecified atrial fibrillation (principal); E11.9 Type 2 diabetes mellitus without complications; G40.909 Epilepsy, unspecified, not intractable, without status epilepticus

== ENCOUNTER → 2021-11-16 | Outpatient (REF) | PROVIDERS: ATTEND Physician Assistant | DX: I10 Essential (primary) hypertension (principal); Z53.9 Procedure and treatment not carried out, unspecified reason ==

== ENCOUNTER → 2021-12-01 | Outpatient (REF) ==
[2021-12-01 09:08] LABS: BASO % 0.6 % (0.0-1.0); EOS # 0.3 10^3/uL (0.0-0.5); EOS % 3.9 % (0.0-3.0); HEMATOCRIT 36.5 % (36.0-47.0); HEMOGLOBIN 12.1 g/dl (12.0-15.5); LYMPH # 1.8 10^3/uL (1.5-5.0); LYMPH % 28.1 % (24.0-44.0); MEAN CORPUSCULAR HEMOGLOBIN 30.9 pg (27.0-33.0); MEAN CORPUSCULAR HGB CONC 33.2 g/dl (32.0-36.5); MEAN CORPUSCULAR VOLUME 93.1 fl (80.0-96.0); MONO # 0.8 10^3/uL (0.0-0.8); MONO % 12.1 % (2.0-8.0); NEUTROPHILS # 3.5 10^3/uL (1.5-8.5); NEUTROPHILS % 54.8 % (36.0-66.0); PLATELET COUNT, AUTOMATED 303 10^3/uL (150-450); RED BLOOD COUNT 3.92 10^6/uL (4.00-5.40); WHITE BLOOD COUNT 6.4 10^3/uL (4.0-10.0)
[2021-12-01 09:42] LABS: ALBUMIN 2.9 GM/DL (3.2-5.2); ALT/SGPT 35 U/L (12-78); BILIRUBIN,TOTAL 0.2 MG/DL (0.2-1.0); BLOOD UREA NITROGEN 13 MG/DL (7-18); CALCIUM LEVEL 9.7 MG/DL (8.8-10.2); CARBON DIOXIDE LEVEL 27 MEQ/L (21-32); CHLORIDE LEVEL 98 MEQ/L (98-107); CREATININE FOR GFR 0.76 MG/DL (0.55-1.30); GLOMERULAR FILTRATION RATE > 60.0 (>39); GLUCOSE, FASTING 127 MG/DL (70-100); PHENYTOIN (DILANTIN) 15.2 UG/ML (10.0-20.0); POTASSIUM SERUM 5.4 MEQ/L (3.5-5.1); SODIUM LEVEL 133 MEQ/L (136-145); TOTAL PROTEIN 7.6 GM/DL (6.4-8.2)
== END ==
LOC: SKLAB7 09:00
PROVIDERS: ATTEND Neuromusculoskeletal Medicine & OMM
DX: G40.909 Epilepsy, unspecified, not intractable, without status epilepticus (principal); M06.9 Rheumatoid arthritis, unspecified

== ENCOUNTER → 2021-12-08 | Outpatient (REF) ==
[2021-12-08 10:18] LABS: ALT/SGPT 32 U/L (12-78); BILIRUBIN,TOTAL 0.2 MG/DL (0.2-1.0); BLOOD UREA NITROGEN 12 MG/DL (7-18); CALCIUM LEVEL 9.2 MG/DL (8.8-10.2); CARBON DIOXIDE LEVEL 26 MEQ/L (21-32); CHLORIDE LEVEL 97 MEQ/L (98-107); CREATININE FOR GFR 0.86 MG/DL (0.55-1.30); GLOMERULAR FILTRATION RATE > 60.0 (>39); GLUCOSE, FASTING 177 MG/DL (70-100); POTASSIUM SERUM 4.2 MEQ/L (3.5-5.1); SODIUM LEVEL 132 MEQ/L (136-145); TOTAL PROTEIN 7.3 GM/DL (6.4-8.2)
== END ==
LOC: SKLAB7 08:59
PROVIDERS: ATTEND Nurse Practitioner Family
DX: M06.9 Rheumatoid arthritis, unspecified (principal); E11.9 Type 2 diabetes mellitus without complications

== ENCOUNTER → 2021-12-11 | Outpatient (CLI) | payer MEDICARE, BC | LOC: SKLAB7 04:07 | PROVIDERS: ATTEND Neuromusculoskeletal Medicine & OMM | DX: Z53.9 Procedure and treatment not carried out, unspecified reason (principal) ==

== ENCOUNTER → 2021-12-12 | Outpatient (REF) ==
[2021-12-12 14:05] LABS: HEMATOCRIT 37.3 % (36.0-47.0); HEMOGLOBIN 12.3 g/dl (12.0-15.5); MEAN CORPUSCULAR HEMOGLOBIN 30.8 pg (27.0-33.0); MEAN CORPUSCULAR VOLUME 93.3 fl (80.0-96.0); PLATELET COUNT, AUTOMATED 199 10^3/uL (150-450); WHITE BLOOD COUNT 3.4 10^3/uL (4.0-10.0)
[2021-12-12 14:48] LABS: ALBUMIN 3.1 GM/DL (3.2-5.2); ALT/SGPT 43 U/L (12-78); BILIRUBIN,TOTAL 0.3 MG/DL (0.2-1.0); BLOOD UREA NITROGEN 12 MG/DL (7-18); CARBON DIOXIDE LEVEL 29 MEQ/L (21-32); CHLORIDE LEVEL 100 MEQ/L (98-107); CREATININE FOR GFR 0.84 MG/DL (0.55-1.30); GLOMERULAR FILTRATION RATE > 60.0 (>39); GLUCOSE, FASTING 108 MG/DL (70-100); SODIUM LEVEL 134 MEQ/L (136-145)
== END ==
LOC: SKLAB7 10:09
PROVIDERS: ATTEND Nurse Practitioner Family
DX: U07.1 COVID-19 (principal)

== ENCOUNTER → 2021-12-15 | Outpatient (REF) | payer MEDICARE, BC ==
[2021-12-15 09:44] LABS: HEMATOCRIT 40.9 % (36.0-47.0); HEMOGLOBIN 13.8 g/dl (12.0-15.5); MEAN CORPUSCULAR HEMOGLOBIN 30.5 pg (27.0-33.0); MEAN CORPUSCULAR HGB CONC 33.7 g/dl (32.0-36.5); MEAN CORPUSCULAR VOLUME 90.5 fl (80.0-96.0); PLATELET COUNT, AUTOMATED 162 10^3/uL (150-450); RED BLOOD COUNT 4.52 10^6/uL (4.00-5.40); WHITE BLOOD COUNT 3.9 10^3/uL (4.0-10.0)
[2021-12-15 10:15] LABS: ALBUMIN 3.3 GM/DL (3.2-5.2); ALT/SGPT 128 U/L (12-78); BILIRUBIN,TOTAL 0.4 MG/DL (0.2-1.0); BLOOD UREA NITROGEN 16 MG/DL (7-18); CALCIUM LEVEL 9.1 MG/DL (8.8-10.2); CARBON DIOXIDE LEVEL 27 MEQ/L (21-32); CHLORIDE LEVEL 100 MEQ/L (98-107); CREATININE FOR GFR 0.91 MG/DL (0.55-1.30); GLOMERULAR FILTRATION RATE > 60.0 (>39); GLUCOSE, FASTING 126 MG/DL (70-100); POTASSIUM SERUM 4.7 MEQ/L (3.5-5.1); SODIUM LEVEL 135 MEQ/L (136-145); TOTAL PROTEIN 7.5 GM/DL (6.4-8.2)
== END ==
LOC: SKLAB2 10:15
PROVIDERS: ATTEND Nurse Practitioner Family
DX: U07.1 COVID-19 (principal); Z79.899 Other long term (current) drug therapy

== ENCOUNTER → 2021-12-19 | Outpatient (REF) ==
[2021-12-19 08:47] LABS: HEMATOCRIT 38.8 % (36.0-47.0); HEMOGLOBIN 13.2 g/dl (12.0-15.5); MEAN CORPUSCULAR HEMOGLOBIN 29.8 pg (27.0-33.0); MEAN CORPUSCULAR VOLUME 87.6 fl (80.0-96.0); PLATELET COUNT, AUTOMATED 141 10^3/uL (150-450); RED BLOOD COUNT 4.43 10^6/uL (4.00-5.40); WHITE BLOOD COUNT 7.2 10^3/uL (4.0-10.0)
[2021-12-19 09:12] LABS: BLOOD UREA NITROGEN 9 MG/DL (7-18); GLUCOSE, FASTING 134 MG/DL (70-100)
[2021-12-19 09:13] LABS: ALBUMIN 3.2 GM/DL (3.2-5.2); ALT/SGPT 113 U/L (12-78); BILIRUBIN,TOTAL 0.6 MG/DL (0.2-1.0); CALCIUM LEVEL 9.4 MG/DL (8.8-10.2); CARBON DIOXIDE LEVEL 23 MEQ/L (21-32); CHLORIDE LEVEL 104 MEQ/L (98-107); CREATININE FOR GFR 0.74 MG/DL (0.55-1.30); GLOMERULAR FILTRATION RATE > 60.0 (>39); POTASSIUM SERUM 3.6 MEQ/L (3.5-5.1); SODIUM LEVEL 137 MEQ/L (136-145); TOTAL PROTEIN 7.3 GM/DL (6.4-8.2)
== END ==
LOC: SKLAB2 09:32
PROVIDERS: ATTEND Nurse Practitioner Family
DX: U07.1 COVID-19 (principal)

== ENCOUNTER → 2021-12-22 | Outpatient (REF) | payer MEDICARE, BC ==
[2021-12-22 10:22] LABS: HEMATOCRIT 37.4 % (36.0-47.0); HEMOGLOBIN 12.8 g/dl (12.0-15.5); MEAN CORPUSCULAR HEMOGLOBIN 30.8 pg (27.0-33.0); MEAN CORPUSCULAR HGB CONC 34.2 g/dl (32.0-36.5); MEAN CORPUSCULAR VOLUME 90.1 fl (80.0-96.0); PLATELET COUNT, AUTOMATED 202 10^3/uL (150-450); RED BLOOD COUNT 4.15 10^6/uL (4.00-5.40); WHITE BLOOD COUNT 5.1 10^3/uL (4.0-10.0)
[2021-12-22 11:30] LABS: ALT/SGPT 126 U/L (12-78); BILIRUBIN,TOTAL 0.5 MG/DL (0.2-1.0); BLOOD UREA NITROGEN 17 MG/DL (7-18); CALCIUM LEVEL 9.1 MG/DL (8.8-10.2); CARBON DIOXIDE LEVEL 26 MEQ/L (21-32); CHLORIDE LEVEL 100 MEQ/L (98-107); CREATININE FOR GFR 0.82 MG/DL (0.55-1.30); GLOMERULAR FILTRATION RATE > 60.0 (>39); GLUCOSE, FASTING 176 MG/DL (70-100); POTASSIUM SERUM 3.8 MEQ/L (3.5-5.1); SODIUM LEVEL 134 MEQ/L (136-145); TOTAL PROTEIN 7.1 GM/DL (6.4-8.2)
== END ==
LOC: SKLAB2 07:00
PROVIDERS: ATTEND Nurse Practitioner Family
DX: U07.1 COVID-19 (principal); Z79.899 Other long term (current) drug therapy

== ENCOUNTER 2022-09-08 11:25 | Emergency (ER) | payer OTHER, MEDICARE ==
[~2022-09-08] VITALS: Ht 167.6 cm; Wt 73.7 kg
[2022-09-08] MEDS ORDERED: fentaNYL 100 MCG/2 ML INJECTION IV ONE (12:50)
[2022-09-08] MEDS ORDERED: NS 500 ML IV ONE (12:50)
[2022-09-08 13:20] LABS: BASO # 0.1 10^3/uL (0.0-0.2); BASO % 0.6 % (0.0-1.0); EOS # 0.1 10^3/uL (0.0-0.5); EOS % 1.7 % (0.0-3.0); HEMATOCRIT 37.1 % (36.0-47.0); HEMOGLOBIN 12.6 g/dl (12.0-15.5); LYMPH # 1.8 10^3/uL (1.5-5.0); LYMPH % 22.6 % (24.0-44.0); MEAN CORPUSCULAR HEMOGLOBIN 31.8 pg (27.0-33.0); MEAN CORPUSCULAR VOLUME 93.7 fl (80.0-96.0); MONO # 0.6 10^3/uL (0.0-0.8); MONO % 7.9 % (2.0-8.0); NEUTROPHILS # 5.4 10^3/uL (1.5-8.5); NEUTROPHILS % 67.1 % (36.0-66.0); PLATELET COUNT, AUTOMATED 202 10^3/uL (150-450); RED BLOOD COUNT 3.96 10^6/uL (4.00-5.40); WHITE BLOOD COUNT 8.1 10^3/uL (4.0-10.0)
[2022-09-08 13:45] LABS: BLOOD UREA NITROGEN 30 MG/DL (9-23); CALCIUM LEVEL 9.2 MG/DL (8.3-10.6); CARBON DIOXIDE LEVEL 28 MMOL/L (20-31); CHLORIDE LEVEL 103 MMOL/L (98-107); CREATININE FOR GFR 0.76 MG/DL (0.55-1.30); GLOMERULAR FILTRATION RATE > 60.0 (>39); GLUCOSE, FASTING 107 MG/DL (74-106); POTASSIUM SERUM 4.5 MMOL/L (3.5-5.1); SODIUM LEVEL 139 MMOL/L (136-145)
[2022-09-08] MEDS ORDERED: LIDO5DIS41 TOP (14:40)
[2022-09-08] MEDS ORDERED: LEVO750T14 PO (14:40)
[2022-09-08] MEDS ORDERED: ACET-716 PO (14:40)
[2022-09-08 14:42] VITALS: BP 138/77
== END 2022-09-08 14:50 | disposition home or self-care (01) ==
LOC: M ED 11:25
DX: N39.0 Urinary tract infection, site not specified (principal); R10.9 Unspecified abdominal pain; J18.9 Pneumonia, unspecified organism; E11.9 Type 2 diabetes mellitus without complications; I10 Essential (primary) hypertension; K21.9 Gastro-esophageal reflux disease without esophagitis; Z88.8 Allergy status to other drugs, medicaments and biological substances; Z79.899 Other long term (current) drug therapy
CPT/HCPCS: 74176; 80048; 81001; 85025; 87086; 96374; 99284; J3010

== ENCOUNTER 2025-03-11 06:52 | Day surgery (SDC) | payer MEDICARE, MEDICAID ==
[~2025-03-11] VITALS: Ht 167.6 cm; Wt 84.6 kg
[~2025-03-11 06:52] MED LIST changes: +ACET-716 PO; +AMIT10TA11 PO; +B-12100010 PO; +CARV3.12 PO; +CEFD1CAP9 PO; -CEFD300C41 PO; +DICL100G10 TOP; +FOLI1TAB11 PO; -HYDR200T3 PO; +HYDR200T46 PO; +IRBE150T27 PO; -IRBE150T7 PO; +IRBE75TA11 PO; -IRBE75TA4 PO; +IRON65TA2 PO; -LEFL1TAB4 PO; +LEFL20TA15 PO; +LEVE500T5 PO; +LEVO75TAB PO; +LIDO1ADH93 TOP; +MECL-209 PO; -MECL1TAB31 PO; +MELA1TAB55 PO; +MV-M1TAB13 PO; -OMEP-173; +OMEP-173 PO; +ONDA-282 PO; -ONDA4TAB6 PO; +POTA-149 PO; +PRED-1142 PO; -PRED1TABL PO; -ROPI0.253 PO; +ROPI5TAB19 PO; +VITA100051 PO; +VITA200T8 PO; +VITA500075 PO
[2025-03-11] MEDS ORDERED: LIDOCAINE 2% 100 MG/5 ML SDV (FOR ANES.) As Ordered ONE (07:52)
[2025-03-11] MEDS ORDERED: LABETALOL 100 MG/20 ML VIAL As Ordered ONE (07:57)
[2025-03-11] MEDS ORDERED: METOPROLOL 5 MG/5 ML VIAL As Ordered ONE (08:03)
[2025-03-11] MEDS ORDERED: ESMOLOL 100 MG/10 ML VIAL As Ordered ONE (08:03)
[2025-03-11] MEDS ORDERED: PHENYLephrine 500MCG 5ML (100MCG/ML) SYRINGE As Ordered ONE (08:08)
[2025-03-11] MEDS ORDERED: ONDANSETRON 4MG 2ML VIAL As Ordered ONE (08:08)
[2025-03-11 09:10] VITALS: BP 118/78; O2SAT 93
== END 2025-03-11 09:39 | disposition home or self-care (01) ==
LOC: M OPP 06:52
PROVIDERS: ATTEND Internal Medicine Gastroenterology
DX: Z12.11 Encounter for screening for malignant neoplasm of colon (principal); K57.30 Diverticulosis of large intestine without perforation or abscess without bleeding; K64.0 First degree hemorrhoids; Z80.0 Family history of malignant neoplasm of digestive organs; R12 Heartburn; I48.91 Unspecified atrial fibrillation; G47.30 Sleep apnea, unspecified; Z88.8 Allergy status to other drugs, medicaments and biological substances; Z79.01 Long term (current) use of anticoagulants; Z79.84 Long term (current) use of oral hypoglycemic drugs; Z79.52 Long term (current) use of systemic steroids; Z79.85 Long-term (current) use of injectable non-insulin antidiabetic drugs; Z79.899 Other long term (current) drug therapy; R56.9 Unspecified convulsions
CPT/HCPCS: 43239; 88305; 93005; G0105; J0616; J1805; J1920; J2371; J2405